=== PATIENT | male | born 1970 | race Hispanic/Latino ===

== ENCOUNTER 2019-07-06 15:08 | Emergency (ER) | payer SELFPAY ==
[~2019-07-06] VITALS: Ht 167.6 cm; Wt 96.6 kg
--- OUTSIDE RECORDS SUMMARY | ~2019-07-06 | XMS | Clinical Summary ---
Demographics + + + | Address | [address] | | | [place] [address] | + + + | Home Phone | | + + + | Preferred Language | Unknown | + + + | Marital Status | | + + + | Restorationism Affiliation | 1041 | + + + | Race | Unknown | + + + | Ethnic Group | Unknown | + + + Author + + + | Author | [facility] | | | and [place] | + + + | Organization | [facility] | | | and [place] | + + + | Address | Unknown | + + + | Phone | Unavailable | + + + Support + + + + + | Name | Relationship | Address | Phone | + + + + + | Leona Brothers | ECON | [address] | | | | | [place] | | | | | [address] | | + + + + + Care Team Providers + +------+ + | Care Senior Category Manager Name | Role | Phone | + +------+ + | Farhan Ferraro DO | PCP | | + +------+ + Allergies No Known Allergies Medications + + + +---------+------+------+-------+ | Medication | Sig | Dispensed | Refills | Star | End | Statu | | | | | | t | Date | s | | | | | | Date | | | + + + +---------+------+------+-------+ | cyclobenzaprine | | | 0 | 11/0 | | Activ | | (FLEXERIL) 10 mg | | | | 1/20 | | e | | tablet | | | | 18 | | | + + + +---------+------+------+-------+ | ibuprofen | | | 0 | 11/1 | | Activ | | (ADVIL,MOTRIN) 800 | | | | 1/20 | | e | | MG tablet | | | | 18 | | | + + + +---------+------+------+-------+ | ACETAMINOPHEN PO | Take by mouth. | | 0 | | | Activ | | | | | | | | e | + + + +---------+------+------+-------+ | metFORMIN | Take 1 tablet by | 180 | 0 | 08/1 | | Activ | | (GLUCOPHAGE) 500 mg | mouth 2 times daily. | tablet | | 8/20 | | e | | tablet | | | | 19 | | | + + + +---------+------+------+-------+ | glimepiride | TAKE 1 TABLET BY | | 5 | / | | Activ | | (AMARYL) 2 MG tablet | MOUTH TWICE DAILY | | | 2/20 | | e | | | | | | 19 | | | + + + +---------+------+------+-------+ | oseltamivir | Take 1 capsule by | 10 | 0 | 12/0 | 12/0 | Activ | | (TAMIFLU) 75 mg | mouth 2 times daily | capsule | | /20 | 9 | e | | capsuleIndications: | for 5 days. | | | 19 | 19 | | | Influenza | Indications: Flu | | | | | | + + + +---------+------+------+-------+ | | Take 5-10 mLs by | 120 mL | 0 | 12/0 | | Activ | | guaiFENesin-codeine | mouth every 4 hours | | | 4/20 | | e | | (ROBITUSSIN AC) | as needed for Cough. | | | 19 | | | | 100-10 mg/5 mL | | | | | | | | liquid | | | | | | | + + + +---------+------+------+-------+ Active Problems No known active problems Encounters +--------+---------+ + + + | Date | Type | Specialty | Care Team | Description | +--------+---------+ + + + | 07/03/ | Office | Immediate Care | Justin Baires, | Influenza B (Primary | | 2019 | Visit | | MD | Dx) | +--------+---------+ + + + from Last 3 Months Social History + +-------+ +--------+------+ | Tobacco Use | Types | Packs/Day | Years | Date | | | | | Used | | + +-------+ +--------+------+ | Never Smoker | | | | | + +-------+ +--------+------+ + +---+---+---+ | Smokeless Tobacco: | | | | | Never Used | | | | + +---+---+---+ + + +---------+ + | Alcohol Use | Drinks/Week | oz/Week | Comments | + + +---------+ + | Not Asked | 0 Standard drinks | 0.0 | | | | or equivalent | | | + + +---------+ + + + + | Sex Assigned at | Date Recorded | | | | + + + | Not on file | | + + + + + + + | Job Start Date | Occupation | Industry | + + + + | Not on file | Not on file | Not on file | + + + + + + + + | Travel History | Travel Start | Travel End | + + + + + + | No recent travel history available. | + + Last Filed Vital Signs + + + + + | Vital Sign | Reading | Time Taken | Comments | + + + + + | Blood Pressure | 149/76 | 07/03/2019 4:03 PM | | | | | PST | | + + + + + | Pulse | 102 | 07/03/2019 4:03 PM | | | | | PST | | + + + + + | Temperature | 37.2 C (98.9 F) | 07/03/2019 4:03 PM | | | | | PST | | + + + + + | Respiratory Rate | 18 | 07/03/2019 4:03 PM | | | | | PST | | + + + + + | Oxygen Saturation | 97% | 07/03/2019 4:03 PM | | | | | PST | | + + + + + | Inhaled Oxygen | - | - | | | Concentration | | | | + + + + + | Weight | 97.6 kg (215 lb 2.7 | 07/03/2019 4:03 PM | | | | oz) | PST | | + + + + + | Height | 167.6 cm (5' 6") | 07/03/2019 4:03 PM | | | | | PST | | + + + + + | Body Mass Index | 34.73 | 07/03/2019 4:03 PM | | | | | PST | | + + + + + Plan of Treatment + + + + + | Health Maintenance | Due Date | Last Done | Comments | + + + + + | Vaccine: | | | | | Dtap/Tdap/Td (1 - | 0 | | | | Tdap) | | | | + + + + + | Vaccine: Influenza | | | | | (#1) | 9 | | | + + + + + Procedures + +--------+ + + + | Procedure Name | Priori | Date/Time | Associated Diagnosis | Comments | | | ty | | | | + +--------+ + + + | INFLUENZA A AND B | STAT | 07/03/2019 | Influenza B | Results for this | | RNA, NAAT | | 4:10 PM | | procedure are in the | | | | PST | | results section. | + +--------+ + + + from Last 3 Months Results Influenza A and B RNA, NAAT (07/03/2019 4:10 PM PST) + + + + + + | Component | Value | Ref Range | Performed | Pathologist | | | | | At | Signature | + + + + + + | Influenza A | Test not performed | Negative, Test | [facility] | | | PCR | | not performed | [facility] | | | | | | [facility] | | + + + + + + | Influenza B | Positive (A) | Negative, Test | [facility] | | | PCR | | not performed | [facility] | [facility] | | | | | | [facility] | | + + + + + + + + | Specimen | + + | Tissue - Entire | | nasopharynx (body | | structure) | + + + + + + + | Performing | Address | City/State/Zipcode | Phone Number | | Organization | | | | + + + + + | [facility] | [address] | [place] | [phone] | | [facility] | | [address] | | | [facility] | | | | + + + + + from Last 3 Months Advance Directives + + + + + | Type | Date Recorded | Patient | Explanation | | | | Rn Clinical Trials | | + + + + + | Power of | | | | | Electrical Equipment Tester | | | | + + + + + | Advance | | | | | Directive | | | | + + + + +
--- OUTSIDE RECORDS SUMMARY | ~2019-07-06 | XMS | Encounter Summary ---
Demographics + + + | Address | [address] | | | [place] [address] | + + + | Home Phone | | + + + | Preferred Language | Unknown | + + + | Marital Status | | + + + | Scientologist Affiliation | 1041 | + + + | Race | Unknown | + + + | Ethnic Group | Unknown | + + + Author + + + | Author | [facility] | | | and [place] | + + + | Organization | [facility] | | | and [place] | + + + | Address | Unknown | + + + | Phone | Unavailable | + + + Support + + + + + | Name | Relationship | Address | Phone | + + + + + | Leona Brothers | ECON | [address] | | | | | [place] | | | | | [address] | | + + + + + Care Team Providers + +------+ + | Care Apparel Rental Clerk Name | Role | Phone | + +------+ + | Farhan Ferraro DO | PCP | | + +------+ + Reason for Referral Evaluate & Treat (Routine) + + + + + + + | Status | Reason | Specialty | Diagnoses / | Referred By | Referred To | | | | | Procedures | Contact | Contact | + + + + + + + | Authorized | Specialty | Diabetes | Diagnoses | Armas, | [facility] | | | Services | Educator / | | Simona Clarke, | Diabetes | | | Required | Diabetes | Uncontrolled | DO [address] | Education | | | | Services | type 2 | [facility] | [address] | | | | | diabetes | [place] | [place], | | | | | mellitus | [place], [place] | [place] | | | | | with | [address] | [address] | | | | | hyperglycemi | Phone: | Phone: | | | | | a ([facility]) | [phone] | [phone] | | | | | | Fax: | Fax: | | | | | | [phone] | [phone] | + + + + + + + Reason for Visit + + + | Reason | Comments | + + + | Blood Sugar Problem | RM 2 = Checked diabetes and has been from 243-390, feeling tired, | | | headache, | + + + Encounter Details +--------+---------+ + + + | Date | Type | Department | Care Team | Description | +--------+---------+ + + + | 03/17/ | Office | [facility] | Simona Armas | Uncontrolled type 2 | | 2019 | Visit | CARE [address] | DO [address] | diabetes mellitus | | | | [place] | [address] [place] | with hyperglycemia | | | | [address] | [place] [address] | ([facility]) (Primary Dx) | | | | [phone] | [phone] | | | | | | | | +--------+---------+ + + + Social History + +-------+ +--------+------+ | Tobacco [...] recent travel history available. | + + documented as of this encounter Last Filed Vital Signs + + + + + | Vital Sign | Reading | Time Taken | Comments | + + + + + | Blood Pressure | 120/80 | 03/17/2019 5:43 PM | | | | | PDT | | + + + + + | Pulse | 72 | 03/17/2019 5:43 PM | | | | | PDT | | + + + + + | Temperature | 36.7 C (98.1 F) | 03/17/2019 5:43 PM | | | | | PDT | | + + + + + | Respiratory Rate | 18 | 03/17/2019 5:43 PM | | | | | PDT | | + + + + + | Oxygen Saturation | 97% | 03/17/2019 5:43 PM | | | | | PDT | | + + + + + | Inhaled Oxygen | - | - | | | Concentration | | | | + + + + + | Weight | 94.3 kg (207 lb 14.3 | 03/17/2019 5:43 PM | | | | oz) | PDT | | + + + + + | Height | 167.6 cm (5' 6") | 03/17/2019 5:43 PM | | | | | PDT | | + + + + + | Body Mass Index | 33.55 | 03/17/2019 5:43 PM | | | | | PDT | | + + + + + documented in this encounter Progress Notes Warner Aranda CMA - 03/17/2019 5:15 PM PDTVerified name and date of of patient bef ore provider orders were carried out. Left AC X1, 23G, 1 lavender tube and 1 green tube. Patient tolerated well.Electronically si gned by Warner Aranda CMA at 03/17/2019 6:17 PM PDTPorter, Simona Clarke, - 03/17/2019 5: 15 PM PDT Patient ID: Guillermo Lewis is a 49 y.o. year old male Chief Complaint: Chief Complaint Patient presents with Blood Sugar Problem RM 2 = Checked diabetes and has been from 243-390, feeling tired, headache, Assessment and Plan: 1. Hyperglycemia Comprehensive Metabolic Panel Hemoglobin A1C Based on his blood sugar log that he has been doing on his 's home machine I am quite c ertain that he has undiagnosed type 2 diabetes. We will check an A1c and CMP today. Start metformin 500 mg twice daily and get established with a PCP. He will also start a daily asp irin. He is uninsured and is quite concerned about the cost of seeing a doctor, labs and me dications. is going to contact the hospital to see if there is any patient assistance available. Referral placed to simulation educator. Subjective: HPI Patient presents with to the urgent care today complaining of increased blood sugars a t home. He started feeling tired around March 10, 2019. is a diabetic and checked hi s sugar and it was over 300. She brings in a log of the sugar she has taken on him and they are running in the high 180s to low 200s. He has no prior history of diabetes diagnosis. He has no history of hypertension, coronary artery disease, cerebrovascular accident, or tob acco use. He has no other major medical problems. He takes no medications. Patient's medications, allergies, past medical, surgical, social and family histories were obtained and reviewed as appropriate. Review of Systems All other systems reviewed and are negative. Objective: Vitals: BP 120/80 | Pulse 72 | Temp 36.7 C (98.1 F) (Temporal) | Resp 18 | Ht 1.676 m (5' 6 ") | Wt 94.3 kg (207 lb 14.3 oz) | SpO2 97% | BMI 33.55 kg/m Physical Exam Constitutional: He is oriented to person, place, and time. He appears well-developed and we ll-nourished. No distress. HENT: Head: Normocephalic and atraumatic. Eyes: Pupils are equal, round, and reactive to light. Neurological: He is alert and oriented to person, place, and time. He has normal strength a nd normal reflexes. No sensory deficit. Skin: Skin is warm and dry. He is not diaphoretic. Psychiatric: He has a normal mood and affect. His speech is normal. Vitals reviewed. Electronically signed by: Simona Armas DO 03/17/2019 18:04 Note: Part of this report was transcribed using voice recognition software. Every effort wa s made to ensure accuracy. However, inadvertent computerized creel hand errors may be pre sent. Nestor Duque RN - 03/17/2019 5:15 PM PDTBlood sugar was 173 documented in this encounter Plan of Treatment + + +--------+ + + | Name | Type | Priori | Associated Diagnoses | Order Schedule | | | | ty | | | + + +--------+ + + | * [facility] | Outpatient | Routin | Uncontrolled type | Ordered: 03/17/2019 | | Education - AMB | Referral | e | 2 diabetes mellitus | | | Referral | | | with hyperglycemia | | | | | | (HCC) | | + + +--------+ + + documented as of this encounter Procedures + +--------+ + + + | Procedure Name | Priori | Date/Time | Associated Diagnosis | Comments | | | ty | | | | + +--------+ + + + | HEMOGLOBIN A1C | STAT | 03/17/2019 | Uncontrolled type | Results for this | | | | 6:06 PM | 2 diabetes mellitus | procedure are in the | | | | PDT | with hyperglycemia | results section. | | | | | (HCC) | | + +--------+ + + + | COMPREHENSIVE | STAT | 03/17/2019 | Uncontrolled type | Results for this | | METABOLIC PANEL | | 6:06 PM | 2 diabetes mellitus | procedure are in the | | | | PDT | with hyperglycemia | results section. | | | | | (HCC) | | + +--------+ + + + documented in this encounter Results Hemoglobin A1C (03/17/2019 6:06 PM PDT) + +---------+ + + + | Component | Value | Ref Range | Performed | Pathologist | | | | | At | Signature | + +---------+ + + + | Hemoglobin | 9.5 (H) | 4.3 - 6.0 % | [facility] | | | A1c | | | [facility] | | | | | | [facility] | | | | | | [facility] - | | | | | | LAB[facility]ATORY | | + +---------+ + + + | Estimated | 226 | mg/dL | [facility] | | | Average | | | [facility] | | | Glucose | | | MEDICAL | | | | | | CENTER - | | | | | | LABORATORY | | + +---------+ + + + + + | Specimen | + + | Blood | + + + + + + + | Performing | Address | City/State/Zipcode | Phone Number | | Organization | | | | + + + + + | [facility] | [address] | [place] | [phone] | | [facility] | | [address] | | | - LABORATORY | | | | + + + + + Comprehensive Metabolic Panel (03/17/2019 6:06 PM PDT) + + + + + + | Component | Value | Ref Range | Performed | Pathologist | | | | | At | Signature | + + + + + + | Na | 136 | 136 - 145 | [facility] | | | | | mmol/L | [facility] | | | | | [facility] | | | | | [facility] | | | | | | LAB[facility]ORY | | + + + + + + | K | 4.2 | 3.5 - 5.1 | [facility] | | | | | mmol/L | [facility] | | | | | | [facility] | | | | | | [facility] | | | | | | LAB[facility]ATORY | | + + + + + + | Cl | 102 | 98 - 107 mmol/L | [facility] | | | | | | [facility] | | | | | [facility] | | | | | [facility] | | | | | | LAB[facility] | | + + + + + + | CO2 | 30 | 21 - 32 mmol/L | [facility] | | | | | | [facility] | | [facility] | | [facility] | | | | | [facility] | | | | | | LAB[facility]ORY | | + + + + + + | Anion Gap | 4 | 2 - 16 mmol/L | [facility] | | | | | | [facility] | | | | | [facility] | | | | | [facility] | | | | | | LAB[facility]ORY | | + + + + + + | Glucose | 166 (H) | 74 - 106 mg/dL | [facility] | | | | | | [facility] | | | | | [facility] | | | | | [facility] | | | | | | LAB[facility]ATORY | | + + + + + + | BUN | 15 | 7 - 18 mg/dL | [facility] | | | | | | [facility] | | | [facility] | | | | | [facility] | | | | | | [facility] | | + + + + + + | Creatinine | 0.88 | 0.70 - 1.30 | [facility] | | | | | mg/dL | [facility] | | | | | | [facility] | | | | | | [facility] | | | | | | LABORATORY | | + + + + + + | eGFR if not | >60Comment: GLOMERULAR | >=60 | [facility] | | | | FILTRATION | mL/min/1.73m2 | [facility] | | | FAROESE | RATE,ESTIMATED | | MEDICAL | | | | mL/min/1.55c7Lcqj than | | PARK | | | | 60 Chronic kidney | | LABORATORY | | | | disease,if found over a | | | | | | 3-month period.Less than | | | | | | 15 Kidney failureFor | | | | | | | | | | | | Americans,multiply the | | | | | | calculated GFR by 1.21. | | | | | | | | | | + + + + + + | Calcium | 8.4 (L) | 8.5 - 10.1 | [facility] | | | | | mg/dL | [facility] | | | | | [facility] | | | | | | [facility] | | | | | | LAB[facility]ORY | | + + + + + + | Albumin | 3.6 | 3.4 - 5.0 g/dL | [facility] | | | | | | [facility] | | | | | [facility] | | | | | | [facility] | | | | | | [facility]ORY | | + + + + + + | Bilirubin | 0.4 | 0.2 - 1.0 mg/dL | [facility] | | | Total | | | [facility] | | | | | | [facility] | | | | | | [facility] | | | | | | LAB[facility]ATORY | | + + + + + + | Total | 6.9 | 6.4 - 8.2 g/dL | [facility] | | | Protein | | | [facility] | | | | | | [facility] | | | | | | [facility] | | | | | | LAB[facility]ATORY | | + + + + + + | AST | 32 | 15 - 37 U/L | [facility] | | | | | | [facility] | | | [facility] | [facility] | | | | | | [facility] | | | | | | LAB[facility]ATORY | | + + + + + + | ALT | 67 (H) | 16 - 63 U/L | [facility] | | | | | | [facility] | | | | | [facility] | | | | | | [facility] | | | | | | LAB[facility]ATORY | | + + + + + + | Alkaline | 90 | 46 - 116 U/L | [facility] | | | Phosphatase | | | [facility] | | | | | [facility] | | | | | | [facility] | | | | | | LAB[facility]ATORY | | + + + + + + | Globulin | 3.3 | 2.1 - 3.8 g/dL | [facility] | | | | | | [facility] | | | | | [facility] | | | | | | [facility] | | | | | | LAB[facility]ORY | | + + + + + + | Albumin/Nathalie | 1.1 | 0.8 - 2.0 | [facility] | | | bulin Ratio | | | [facility] | | | | | [facility] | | | | | | [facility] | | | | | | LAB[facility]ORY | | + + + + + + | BUN/Creatin | 17.0 | | [facility] | | | ine Ratio | | | [facility] | | | | | | [facility] | | | | | | [facility] | | | | | | LAB[facility]ORY | | + + + + + + + + | Specimen | + + | Blood | + + + + + + + | Performing | Address | City/State/Zipcode | Phone Number | | Organization | | | | + + + + + | [facility] | [address] | [place] | [phone] | | [facility] | | [address] | | | [facility] | | | | + + + + + documented in this encounter Visit Diagnoses + + | Diagnosis | + + | Uncontrolled type 2 diabetes mellitus with hyperglycemia (HCC) - Primary | + + documented in this encounter
--- OUTSIDE RECORDS SUMMARY | ~2019-07-06 | XMS | Encounter Summary ---
Demographics + + + | Address | [address] | | | [place] [address] | + + + | Home Phone | | + + + | Preferred Language | Unknown | + + + | Marital Status | | + + + | Quaker Affiliation | 1041 | + + + | Race | Unknown | + + + | Ethnic Group | Unknown | + + + Author + + + | Author | [facility] | | | and [place] | + + + | Organization | [facility] | | | and [place] | + + + | Address | Unknown | + + + | Phone | Unavailable | + + + Support + + + + + | Name | Relationship | Address | Phone | + + + + + | Leona Brothers | ECON | [address] | | | | | [place], [place] | | | | | [address] | | + + + + + Care Team Providers + +------+ + | Care Forklift Mechanic Name | Role | Phone | + +------+ + | Farhan Ferraro PCP | | + +------+ + Encounter Details +--------+ + + + + | Date | Type | Department | Care Team | Description | +--------+ + + + + | 06/16/ | Imaging | [facility] [place] [facility] | [place] | | | 2018 | Exam | [facility] [address] | [address] [place] | [place] | | | | | [place] [id number] | [address] | | | | | [phone] | | | +--------+ + + + + Social History + +-------+ [...] + + documented as of this encounter Plan of Treatment Not on filedocumented as of this encounter Procedures + +--------+ + + + | Procedure Name | Priori | Date/Time | Associated Diagnosis | Comments | | | ty | | | | + +--------+ + + + | XR CHEST PA AND | STAT | 06/16/2018 | Persistent cough | Results for this | | LATERAL | | 2:57 PM | for 3 weeks or | procedure are in the | | | | PST | longer | results section. | + +--------+ + + + documented in this encounter Results XR Chest PA and Lateral (06/16/2018 2:57 PM PST) + + | Specimen | + + | | + + + + + | Narrative | Performed At | + + + | CLINICAL INFORMATION: 1 month of productive cough. COMPARISON: | [facility] | | None available. FINDINGS: Frontal and lateral views of the | | | chest. Lungs: No focal airspace disease, pleural effusion, or | | | pneumothorax. Heart/mediastinum: Cardiac silhouette is of normal | | | size. Central pulmonary vasculature has a normal appearance. | | | Bones: No acute osseous abnormality appreciated. IMPRESSION - No | | | acute disease. Dictated and Signed by: Corby Cox MD | | | Electronically signed: 06/16/2018 6:14 PM | | + + + + + | Procedure Note | + + | Cheng, Rad Results In - 06/16/2018 6:17 PM PST CLINICAL INFORMATION: 1 month of | | productive cough.COMPARISON: None available.FINDINGS: Frontal and lateral views of the | | chest. Lungs: No focal airspace disease, pleural effusion, or pneumothorax. | | Heart/mediastinum: Cardiac silhouette is of normal size. Central pulmonaryvasculature | | has a normal appearance.Bones: No acute osseous abnormality appreciated.IMPRESSION - No | | acute disease.Dictated and Signed by: Corby Cox MD Electronically signed: | | 06/16/2018 6:14 PM | |Lungs: No focal airspace disease, pleural effusion, or pneumothorax. | | | |Heart/mediastinum: Cardiac silhouette is of normal size. Central pulmonary | |vasculature has a normal appearance. | | | |Bones: No acute osseous abnormality appreciated. | | | |IMPRESSION - No acute disease. | | | |Dictated and Signed by: Corby Cox MD | | Electronically signed: 06/16/2018 6:14 PM | + + + +---------+ + + | Performing | Address | City/State/Zipcode | Phone Number | | Organization | | | | + +---------+ + + | [facility] | | | | + +---------+ + + documented in this encounter Visit Diagnoses Not on filedocumented in this encounter"
--- OUTSIDE RECORDS SUMMARY | ~2019-07-06 | XMS | Encounter Summary ---
Demographics + + + | Address | [address] | | | [place] [address] | + + + | Home Phone | | + + + | Preferred Language | Unknown | + + + | Marital Status | | + + + | Evangelical Affiliation | 1041 | + + + | Race | Unknown | + + + | Ethnic Group | Unknown | + + + Author + + + | Author | [facility] | | | and [place] | + + + | Organization | [facility] | | | and [place] | + + + | Address | Unknown | + + + | Phone | Unavailable | + + + Support + + + + + | Name | Relationship | Address | Phone | + + + + + | Leona Brothers | ECON | [address] | | | | | [address], [place] | | | | | [address] | | + + + + + Care Team Providers + +------+ + | Care Practice Physician Name | Role | Phone | + +------+ + PCP | Unavailable | + +------+ + Encounter Details +--------+ + + + + | Date | Type | Department | Care Team | Description | +--------+ + + + + | 11/06/ | Hospital | [facility] | | | | 1995 | Encounter | [facility] | | | | | CENTER [address] | | | | | | [place] | | | | | | [address] | | | | | | [phone] | | | +--------+ + + + + Social History + +-------+ +--------+------+ | Tobacco Use | Types | Packs/Day | Years | Date | | | | | Used | | + +-------+ +--------+------+ | Never Assessed | | | | | + +-------+ +--------+------+ + + + | Sex Assigned at [...] Not on filedocumented as of this encounter Visit Diagnoses Not on filedocumented in this encounter"
--- OUTSIDE RECORDS SUMMARY | ~2019-07-06 | XMS | Encounter Summary ---
Demographics + + + | Address | [address] | | | [place] [address] | + + + | Home Phone | | + + + | Preferred Language | Unknown | + + + | Marital Status | | + + + | Quaker Affiliation | 1041 | + + + | Race | Unknown | + + + | Ethnic Group | Unknown | + + + Author + + + | Author | [facility] | | | and [place] | + + + | Organization | [facility] | | | and [place] | + + + | Address | Unknown | + + + | Phone | Unavailable | + + + Support + + + + + | Name | Relationship | Address | Phone | + + + + + | Leona Brothers | ECON | [address] | | | | | [address], [place] | | | | | [address] | | + + + + + Care Team Providers + +------+ + | Care Jumbo Operator Name | Role | Phone | + +------+ + PCP | Unavailable | + +------+ + Encounter Details +--------+ + + + + | Date | Type | Department | Care Team | Description | +--------+ + + + + | 10/05/ | Hospital | [facility] | | | | 2002 | Encounter | [facility] | | | | | | CENTER [address] | | | | | | [place] | | | | | | [address] | | | | | | [phone] | | | +--------+ + + + [...]
--- OUTSIDE RECORDS SUMMARY | ~2019-07-06 | XMS | Encounter Summary ---
Demographics + + + | Address | [address] | | | [place] [address] | + + + | Home Phone | | + + + | Preferred Language | Unknown | + + + | Marital Status | | + + + | Amish Affiliation | 1041 | + + + | Race | Unknown | + + + | Ethnic Group | Unknown | + + + Author + + + | Author | [facility] | | | and [place] | + + + | Organization | [facility] | | | and [place] | + + + | Address | Unknown | + + + | Phone | Unavailable | + + + Support + + + + + | Name | Relationship | Address | Phone | + + + + + | Leona Brothers | ECON | [address] | | | | | [place] | | | | | [address] | | + + + + + Care Team Providers + +------+ + | Care Cable Repairer Name | Role | Phone | + +------+ + | Farhan Ferraro DO | PCP | | + +------+ + Reason for Visit +---------+ + | Reason | Comments | +---------+ + | Results | | +---------+ + Encounter Details +--------+ + + + + | Date | Type | Department | Care Team | Description | +--------+ + + + + | 06/18/ | Telephone | [facility] | BertrandmaganMaicol chapman | Results | | 2017 | | CARE [address] | [address] | | | | | [place] | [place] [place] | | | | | [address] | [address] | | | | | [phone] | | | +--------+ + + + [...]
--- OUTSIDE RECORDS SUMMARY | ~2019-07-06 | XMS | Encounter Summary ---
Demographics + + + | Address | [address] | | | [place] [address] | + + + | Home Phone | | + + + | Preferred Language | Unknown | + + + | Marital Status | | + + + | Anabaptist Affiliation | 1041 | + + + | Race | Unknown | + + + | Ethnic Group | Unknown | + + + Author + + + | Author | [facility] | | | and [place] | + + + | Organization | [facility] | | | and [place] [...] [place] | | | | | [address] | | + + + + + Care Team Providers + +------+ + | Care Wire Twister Name | Role | Phone | + +------+ + | Farhan Ferraro DO | PCP | | + +------+ + Reason for Visit +---------+ + | Reason | Comments | +---------+ + | Results | | +---------+ + Encounter Details +--------+ + + + + | Date | Type | Department | Care Team | Description | +--------+ + + + + | 06/30/ | Telephone | [facility] | BertrandmaganMaicol chapman | Results | | 2017 | | CARE [address] | [address] | | | | | [place] | [place] [place] | | | | | [address] | [address] | | | | | [phone] | | | +--------+ + + + [...]
--- OUTSIDE RECORDS SUMMARY | ~2019-07-06 | XMS | Encounter Summary ---
Demographics + + + | Address | [address] | | | [place] [address] | + + + | Home Phone | | + + + | Preferred Language | Unknown | + + + | Marital Status | | + + + | Synagogue Affiliation | 1041 | + + + | Race | Unknown | + + + | Ethnic Group | Unknown | + + + Author + + + | Author | [facility] | | | and [place] | + + + | Organization | [facility] | | | and [place] | + + + | Address | Unknown | + + + | Phone | Unavailable | + + + Support + + + + + | Name | Relationship | Address | Phone | + + + + + | Leona Brothers | ECON | [address] | | | | | [place], [place] | | | | | [address] | | + + + + + Care Team Providers + +------+ + | Care Tare Weigher Name | Role | Phone | + +------+ + PCP | Unavailable | + +------+ + Encounter Details +--------+ + + + + | Date | Type | Department | Care Team | Description | +--------+ + + + + | 02/05/ | Hospital | [facility] | | | | 1992 | Encounter | [facility] | | | | | | CENTER [address] | | | | | | [place] | | | | | | [address] | | | | | | [phone] | | | +--------+ + + + [...]
--- OUTSIDE RECORDS SUMMARY | ~2019-07-06 | XMS | Encounter Summary ---
Demographics + + + | Address | [address] | | | [place] [address] | + + + | Home Phone | | + + + | Preferred Language | Unknown | + + + | Marital Status | | + + + | Restorationism Affiliation | 1041 | + + + | Race | Unknown | + + + | Ethnic Group | Unknown | + + + Author + + + | Author | [facility] | | | and [place] | + + + | Organization | [facility] | | | and [place] | + + + | Address | Unknown | + + + | Phone | Unavailable | + + + Support + + + + + | Name | Relationship | Address | Phone | + + + + + | Leona Brothers | ECON | [address] | | | | | [facility] [place] | | | | | [address] | | + + + + + Care Team Providers + +------+ + | Care Motor Equipment Commanding Officer Name | Role | Phone | + +------+ + | No, Physician | PCP | Unavailable | + +------+ + Reason for Visit + + + | Reason | Comments | + + + | Flu Like Symptoms | Room 1: cough, fever and chills x5 days, headache | + + + Encounter Details +--------+---------+ + + + | Date | Type | Department | Care Team | Description | +--------+---------+ + + + | 08/12/ | Office | [facility] | Maicol Aparicio | Viral URI with cough | | 2018 | Visit | CARE [address] | MD Carissa [address] | (Primary Dx) | | | | [place] | [place] | | | | | [address] | [address] | | | | | [phone] | | | +--------+---------+ + + + [...] + + + | Blood Pressure | 134/84 | 08/12/2017 3:18 PM | | | | | PST | | + + + + + | Pulse | 76 | 08/12/2017 3:18 PM | | | | | PST | | + + + + + | Temperature | 37.4 C (99.4 F) | 08/12/2017 3:18 PM | | | | | PST | | + + + + + | Respiratory Rate | 18 | 08/12/2017 3:18 PM | | | | | PST | | + + + + + | Oxygen Saturation | 97% | 08/12/2017 3:18 PM | | | | | PST | | + + + + + | Inhaled Oxygen | - | - | | | Concentration | | | | + + + + + | Weight | 99.7 kg (219 lb 12.8 | 08/12/2017 3:18 PM | | | | oz) | PST | | + + + + + | Height | 165.1 cm (5' 5") | 08/12/2017 3:18 PM | | | | | PST | | + + + + + | Body Mass Index | 36.58 | 08/12/2017 3:18 PM | | | | | PST | | + + + + + documented in this encounter Patient Instructions Patient Instructions Maicol Aparicio MD - 08/12/2017 3:00 PM PSTDrink plenty of flui ds and get plenty of rest. Use [id number]-amc-lwdvfut Tylenol, Aleve or Advil as needed for fever, aches and pains. Lavage nose with saline solution 3-4 times a day to improve nasal congestion. Mix 1 level t easpoon of table salt with 2 cups of lukewarm water for nasal irrigation. Use cool mist vaporizer in bedroom and living space to reduce cough and airway irritation. Gargle and spit out warm salt water to soothe sore throat. Use throat lozenges of choice an d/or Cepastat throat spray as needed. Take pkbh-lkw-jdugqso Mucinex or equivalent product as needed for thick mucous. Use Hycodan cough syrup as needed for cough. Return or follow-up with your primary doctor if not better in 1 week, sooner if experiencin g difficulty swallowing liquids, progressive productive cough, associated chest pain, shortn ess of breath, fever or progessive sinus pressure/headache. These are signs that you may n eed an antibiotic for bacterial infection. Enfermedad Respiratoria Viral [Uri, Viral Respiratory Illness, Adult, No Abx] Usted tiene agusto enfermedad respiratoria de las vas superiores provocada por un virus. Est a enfermedad es contagiosa kay los primeros thomas. Se transmite por el aire, por la tos o el estornudo de la persona afectada, o por contacto directo con may persona (si zakiya toca a la persona enferma y despus se toca los ojos, la nariz o la boca). La mayora de las enf ermedades virales mejoran en 7-10 thomas con reposo y simples rosa caseros; aunque, en oc asiones, la enfermedad puede durar varias semanas. Los antibiticos son ineficaces contra l os virus, por lo que generalmente no se recetan para esta enfermedad. Cuidados En [place]: 1) Si los sntomas son severos, descanse en aranda casa kay los primeros 2 3 thomas. Isaura ndo reanude carmen actividades, evite cansarse demasiado. 2) Evite exponerse al humo de cigarrillo (suyo o de otras personas). 3) Puede usar Tylenol (acetaminofn) o ibuprofeno (Motrin o Advil) para controlar la fiebr e o el dolor muscular y el dolor de giovanni. (La aspirina no debe usarse nunca en personas me nores de 18 aos enfermas con fiebre, ya que puede causar daos graves al hgado.) 4) Es posible que tenga poco apetito, por lo que agusto dieta ligera es adecuada. Para evitar la deshidratacin, celine entre 6 y 8 vasos de lquido cada da (agua, refrescos, jugos de fruta, t, sopa etc.). La abundancia de lquido ayuda a desprender las secreciones de la n ariz y los pulmones. 5) Los medicamentos sin receta para el resfriado no acortarn la duracin de la enfermeda d, edi pueden ser tiles para aliviar los siguientes sntomas: tos (Robitussin MD); dolor de garganta (Chloraseptic en comprimidos o spray); congestin nasal y de los senos paranas ales (Actifed, Sudafed o Chlortrimeton). Zuri agusto VISITA DE CONTROL a aranda mdico, o segn le indiquen, si no se siente mejor corbin e la semana prxima. Busque Prontamente Atencin Mdica si algo de lo siguiente ocurre: -- Tos con esputo de color (mucosidad) o con reinaldo. -- Dolor en el pecho, falta de aire, silbidos o dificultad para respirar. -- Dolor de giovanni uri, dolor en la kehinde, el marilu o los odos. -- Fiebre superior a los 100.4 F (38.0 C) kay ms de jac thomas. -- Incapacidad de tragar a causa del dolor de garganta. Date Last Reviewed: 04/12/[id number] [employer]. [address] [place] [address], [place] [address]. Todos lo s derechos reservados. Esta informacin no pretende sustituir la atencin mdica profesio nal. Slo aranda mdico puede diagnosticar y tratar un problema de mali. documented in this encounter Progress Notes Maicol Aparicio MD - 08/12/2017 3:00 PM PSTFormatting of this note might be differen t from the original. Chief Complaint: Flu Like Symptoms (Room 1: cough, fever and chills x5 days, headache) Guillermo is a 47 y.o. male who comes in complaining of congestion and cough starting 4 days ago. Describes clear nasal congestion, mild post-nasal drainage, mild sinus pain/pressure, frontal headache, bilateral; ear ache, eye irritation, sore throat and dry cough. Had measur ed fever, no sweats but chills. Has body aches. No nausea or vomiting. No diarrhea. No short ness of breath or wheezing but has anterior pleuritic chest burning/pain. Non smoker and no hx of asthma or COPD. Was hospitalized for pneumonia 14 years ago. Has been taking ibuprofen with improvement in symptoms. Had exposure to family with same. Patient's medications, allergies, past medical, surgical, social and family histories were reviewed and updated as appropriate. Objective: BP 134/84 | Pulse 76 | Temp 37.4 C (99.4 F) (Temporal) | Resp 18 | Ht 1.651 m (5' 5 ") | Wt 99.7 kg (219 lb 12.8 oz) | SpO2 97% | BMI 36.58 kg/m General Appearance: Alert, cooperative, obese, middle-aged male in no distress, appears st ated age. Non toxic appearance. Breathing comfortably and speaking in full sentences. Head: Normocephalic, no facial sinus tenderness. No mastoid tenderness. Eyes: PERRL, conjunctiva clear without exudates. Ears: Unremarkable TM's with clear external ear canals and gross normal hearing. Nose: Mildly congested with clear exudates. Throat: Erythematous, mildly edematous tonsils without exudates. Moist MM. Neck: Supple, symmetrical, no anterior cervical adenopathy. Lungs: Clear to auscultation bilaterally without rales or wheezes, respirations unlabored. Cardiac: Regular rhythm, no murmur or vel. No ankle edema. Abdomen: Mildly protuberant with normally active bowel sounds, soft, non tender. No organom egaly. Skin: Skin color, texture, turgor normal, no rash. Assessment and Plans: 1. Viral URI with cough HYDROcodone-homatropine (HYCODAN) 5-1.5 MG/5ML syrup 4 day history of viral URI with cough without complication or bronchospasm. He was given t he following instructions and prescription. Plan: Drink plenty of fluids and get plenty of rest. Use gcam-xrr-kymjuin Tylenol, Aleve or Advil as needed for fever, aches and pains. Lavage nose with saline solution 3-4 times a day to improve nasal congestion. Mix 1 level t easpoon of table salt with 2 cups of lukewarm water for nasal irrigation. Use cool mist vaporizer in bedroom and living space to reduce cough and airway irritation. Gargle and spit out warm salt water to soothe sore throat. Use throat lozenges of choice an d/or Cepastat throat spray as needed. Take iaxr-csj-xpsdhjj Mucinex or equivalent product as needed for thick mucous. Use Hycodan cough syrup as needed for cough. Return or follow-up with your primary doctor if not better in 1 week, sooner if experiencin g difficulty swallowing liquids, progressive productive cough, associated chest pain, shortn ess of breath, fever or progessive sinus pressure/headache. These are signs that you may n eed an antibiotic for bacterial infection. Maicol Dugan documented in th is encounter Plan of Treatment Not on filedocumented as of this encounter Visit Diagnoses + + | Diagnosis | + + | Viral URI with cough - Primary Acute upper respiratory infections of unspecified site | + + documented in this encounter
--- OUTSIDE RECORDS SUMMARY | ~2019-07-06 | XMS | Encounter Summary ---
Demographics + + + | Address | [address] | | | [place] [address] | + + + | Home Phone | | + + + | Preferred Language | Unknown | + + + | Marital Status | | + + + | Jainism Affiliation | 1041 | + + + | Race | Unknown | + + + | Ethnic Group | Unknown | + + + Author + + + | Author | [facility] | | | and [place] | + + + | Organization | [facility] | | | and [place] | + + + | Address | Unknown | + + + | Phone | Unavailable | + + + Support + + + + + | Name | Relationship | Address | Phone | + + + + + | Leona Brothers | ECON | [address] | | | | | [place] | | | | | [address] | | + + + + + Care Team Providers + +------+ + | Care Measurement Coordinator Name | Role | Phone | + +------+ + | Farhan Ferraro PCP | | + +------+ + Reason for Visit + + + | Reason | Comments | + + + | Cough | for the last 4 weeks, has been seen in the ER and his PCP, | | | nothing is working, still sick, RM 4 | + + + | Nasal Congestion | | + + + | Fever | | + + + Encounter Details +--------+---------+ + + + | Date | Type | Department | Care Team | Description | +--------+---------+ + + + | 06/16/ | Office | [facility] | Maicol Aparicio | Persistent cough for | | 2018 | Visit | CARE [address] | [address] | 3 weeks or longer | | | | [place] | [place] | (Primary Dx); Acute | | | | [id number] | [id number] | non-recurrent | | | | [phone] | | maxillary sinusitis | +--------+---------+ + + + Social History [...] + + + | Blood Pressure | 140/80 | 06/16/2018 2:14 PM | | | | | PST | | + + + + + | Pulse | 75 | 06/16/2018 2:14 PM | | | | | PST | | + + + + + | Temperature | 36.8 C (98.2 F) | 06/16/2018 2:14 PM | | | | | PST | | + + + + + | Respiratory Rate | 14 | 06/16/2018 2:14 PM | | | | | PST | | + + + + + | Oxygen Saturation | 98% | 06/16/2018 2:14 PM | | | | | PST | | + + + + + | Inhaled Oxygen | - | - | | | Concentration | | | | + + + + + | Weight | 99 kg (218 lb 4.1 | 06/16/2018 2:14 PM | | | | oz) | PST | | + + + + + | Height | 165.1 cm (5' 5") | 06/16/2018 2:14 PM | | | | | PST | | + + + + + | Body Mass Index | 36.32 | 06/16/2018 2:14 PM | | | | | PST | | + + + + + documented in this encounter Patient Instructions Patient Instructions Maicol Aparicio MD - 06/16/2018 2:00 PM PSTTake Augmentin and p rednisone as directed until gone. Finish the course of doxycycline already prescribed. Drink plenty of fluids and get plenty of rest. Use euib-mtx-nidkmhb Tylenol, Aleve or Advil as needed for fever, aches and pains. Lavage nose with saline solution 3-4 times a day to improve nasal congestion. Mix 1 level t easpoon of table salt with 2 cups of lukewarm water for nasal irrigation. If nose is occluded at night, use oxymetazoline nasal spray (Afrin or Dristan Long Acting), 1 spray in each nostril at bedtime only for no more than 5 days. Apply spray after using s michelle lavage and blowing nose clear. Use cool mist vaporizer in bedroom and living space to reduce cough and airway irritation. Gargle and spit out warm salt water to soothe sore throat. Use throat lozenges of choice an d/or Cepastat throat spray as needed. Take vbuy-lsj-lgovihn Mucinex or equivalent product as needed for thick mucous. Use Tessalon Perles as needed for cough. Return or follow-up with your primary doctor if not better in 1 week, sooner if experiencin g difficulty swallowing liquids, progressive productive cough, associated chest pain, shortn ess of breath, fever or progessive sinus pressure/headache. Follow-up with Dr. Ferraro in t he next few weeks. Sinusitis [Sinusitis, Abx Tx] Los senos paranasales son cavidades llenas de aire dentro de los huesos de la kehinde. Se cone ctan con la parte interna de la nariz. La sinusitis es agusto inflamacin del tejido que recub re la cavidad del seno paranasal. Mike inflamacin puede presentarse francisco un resfriado o la fiebre del heno (alergia al polen y a otras partculas que haya en el aire) y puede prov ocar congestin de los senos paranasales y sensacin de tener la giovanni pesada . Agusto infeccin de los senos paranasales causa fiebre, dolor de giovanni y dolor en la kehinde. Suele berry secreciones verdosas o amarillentas de la nariz o por la parte posterior de la gargant a (goteo post-nasal). Se recetan antibiticos para tratar esta enfermedad. Cuidados En [place]: 1. Dina nik agua, t caliente y otros lquidos para mantenerse clay hidratado. Eso dilu ye la mucosidad y facilita el drenaje de los senos paranasales. 2. Aplique calor sobre las reas de la kehinde que le duelen. Use agusto toalla empapada en [place]. Tambin puede pararse en la ducha y dejar que le caiga el [place] sobre la kehinde. sta es agusto buena manera de inhalar el vapor tibio del agua al tiempo que aplica sandy or sobre la kehinde. (Cbrase la boca y la nariz con las david para poder respirar mientras le el agua sobre la kehinde.) 3. Emplee un vaporizador con productos erika Seymour s VapoRub (que contiene mentol) por la n oche. Francisco el da, chupe caramelos duros de menta, mentol o eucalipto. 4. Un expectorante que contenga guaifenesina (erika Robitussin) ayuda a diluir la mucosidad y a facilitar el drenaje de los senos paranasales. 5. Puede arnaldo algn descongestionante sin receta a menos que le hayan recetado algn med icamento similar. Los sprays nasales son los que tienen efecto ms rpido. Use alguno que contenga fenilefrina (Davidson-Synephrine, Sinex, entre otros) o oximetazolina (Afrin). Campbell, sunese la nariz suavemente para eliminar la mucosidad y luego coloque las gotas. No use es os medicamentos con mayor frecuencia que la indicada en la etiqueta o francisco ms de jac d as, dado que los sntomas pueden empeorar. Tambin puede usar tabletas que contengan pse udoefedrina (Sudafed). Muchos medicamentos para la sinusitis combinan componentes, lo que po tima aumentar los efectos secundarios. Kari las etiquetas o pida ayuda al farmacutico. NOT A: Las personas con presin arterial jayleen no deberan arnaldo descongestionantes, porque s tos pueden subir la presin. 6. Los antihistamnicos son tiles si la sinusitis se debe a agusto alergia. El ms suave e s la clorfeniramina (de venta sin receta). La dosis para los adultos es de 8-12 mg jac vece s por da. [NOTA: No tome clorfeniramina si tiene glaucoma o si tiene problemas al orinar d ebido a agusto prstata agrandada.] Claritin (loratadina) es un antihistamnico que provoca m scott somnolencia y resulta agusto buena alternativa para arnaldo francisco el da. 7. No use productos de irrigacin y enjuagues nasales francisco agusto infeccin aguda de los senos paranasales, a menos que se lo haya indicado aranda mdico. El enjuague puede diseminar l a infeccin a otras cavidades de los senos paranasales. 8. Puede usar acetaminofn (Tylenol) o ibuprofeno (Motrin o Advil) para controlar el dolor , a menos que le hayan recetado otro medicamento. [ NOTA: Si tiene agusto enfermedad heptica o renal crnica, o potter tenido alguna vez agusto lcera estomacal, consulte con aranda mdico ante s de arnaldo estos medicamentos.] (La aspirina no debe usarse nunca en personas menores de 18 aos enfermas con fiebre, ya que puede causar daos graves al hgado.) 9. Termine de arnaldo todos los medicamentos que le hayan recetado aunque ya se sienta mejor a los pocos thomas. Programe agusto VISITA DE CONTROL con aranda mdico o a lelia centro, o segn le indique nuestro personal mdico, si no se siente mejor. Busque Prontamente Atencin Mdica si algo de lo siguiente ocurre: Dolor en la kehinde o dolor de giovanni que se hace ms uri. Rigidez en el marilu. Inusual mareo o confusin; se siente "raro" o diferente de lo habitual. Hinchazn de la frente o los prpados. Problemas de visin; por ejemplo, visin borrosa o doble. Fiebre de 100.4F (38C) o ms jayleen, o erika le haya indicado aranda proveedor de atenci n mdica Convulsiones. Date Last Reviewed: 11/10/201419997924-6059 [employer]. [address] [place] [address], [place] [address]. Todos lo s derechos reservados. Esta informacin no pretende sustituir la atencin mdica profesio nal. Slo aranda mdico puede diagnosticar y tratar un problema de mali. documented in this encounter Progress Notes Maicol Aparicio MD - 06/16/2018 2:00 PM PSTFormatting of this note might be differen t from the original. Chief Complaint: Cough (for the last 4 weeks, has been seen in the ER and his PCP, nothing is working, still sick, RM 4); Nasal Congestion; and Fever Guillermo is a 48 y.o. male who comes in with his Moroccan-speaking , complaining of coug h for 1 month. He was initially seen at the [facility] emergency room one month ago, had a c hest x-ray which is reported to be clear and was treated with a Z-Lupillo. He was seen one week ago by Dr. Ferraro, his PCP, who provided him with a 10 day course of doxycycline. He has y et to improve with 3 days left. Describes mild nasal congestion, nighttime post-nasal drain age, mild sinus pain/pressure, bilateral ear ache, no eye irritation, dry sore throat and pr oductive cough with brown sputum for 1 week. Had measured fever of 101F last 3 days ago, has sweats and chills. Has body aches. No nausea but vomiting on occasion with cough. No diarrh ea. Has shortness of breath, no wheezing and has anterior pleuritic chest burning/pain. Non smoker and no hx of asthma. Has used inhaler for bronchitis last year. Remotely hospitalized for the same. Has been taking doxycycline and cold remidies without improvement in symptoms . No exposure to others with same. Patient's medications, allergies, past medical, surgical, social and family histories were reviewed and updated as appropriate. Objective: BP 140/80 | Pulse 75 | Temp 36.8 C (98.2 F) (Temporal) | Resp 14 | Ht 1.651 m (5' 5 ") | Wt 99 kg (218 lb 4.1 oz) | SpO2 98% | BMI 36.32 kg/m General Appearance: Alert, cooperative, obese, middle-aged male in no distress, appears st ated age. Non toxic appearance. Breathing comfortably and speaking in full sentences. Head: Normocephalic, mild maxillary sinus tenderness. No mastoid tenderness. Eyes: PERRL, conjunctiva clear without exudates. Ears: Unremarkable TM's with clear external ear canals and gross normal hearing. Nose: Mildly congested with clear exudates. Throat: Erythematous, moderately edematous with a few exudates. Moist MM. Neck: Supple, symmetrical, no anterior cervical adenopathy. Lungs: Slightly delayed expiratory phase a ventilation to auscultation bilaterally without overt wheezes, rhonchi, rales or rubs, respirations unlabored with good air movement. Cardiac: Quiet precordium, Regular rhythm, no murmur or vel. No ankle edema. Abdomen: Mildly protuberant, normally active bowel sounds, Soft, non tender. No organomegal y. Skin: Skin color, texture, turgor normal, no rash. Two-view chest x-ray, today: My independent review of the two-view chest x-ray failed to reveal acute cardiopulmonary fi ndings. Radiologist interpretation is pending. Assessment and Plans: 1. Persistent cough for 3 weeks or longer XR Chest PA and Lateral Bordetella pertussis DNA, NAAT predniSONE (DELTASONE) 10 mg tablet benzonatate (TESSALON PERLES) 100 mg capsule 2. Acute non-recurrent maxillary sinusitis amoxicillin-clavulanate (AUGMENTIN) 875-125 mg per tablet 1 month history of persistent cough with intermittent brown sputum production despite compl eting a Z-Lupillo followed by 7 days of doxycycline. Findings suspicious for secondary maxillar y sinusitis as a cause of his persistent cough with or without possible postviral cough synd yanick. No infiltrate on chest x-ray. He and his were given the following instructions, prescriptions and a note for work. Plan: Take Augmentin and prednisone as directed until gone. Finish the course of doxycycline already prescribed. Drink plenty of fluids and get plenty of rest. Use eafi-oii-znbnxio Tylenol, Aleve or Advil as needed for fever, aches and pains. Lavage nose with saline solution 3-4 times a day to improve nasal congestion. Mix 1 level t easpoon of table salt with 2 cups of lukewarm water for nasal irrigation. If nose is occluded at night, use oxymetazoline nasal spray (Afrin or Dristan Long Acting), 1 spray in each nostril at bedtime only for no more than 5 days. Apply spray after using s michelle lavage and blowing nose clear. Use cool mist vaporizer in bedroom and living space to reduce cough and airway irritation. Gargle and spit out warm salt water to soothe sore throat. Use throat lozenges of choice an d/or Cepastat throat spray as needed. Take cffa-ldp-xcekktq Mucinex or equivalent product as needed for thick mucous. Use Tessalon Perles as needed for cough. Return or follow-up with your primary doctor if not better in 1 week, sooner if experiencin g difficulty swallowing liquids, progressive productive cough, associated chest pain, shortn ess of breath, fever or progessive sinus pressure/headache. Follow-up with Dr. Ferraro in t he next few weeks. Maicol Lopezectronically signed by Maicol Aparicio MD at 06/16/2018 4:54 PM PSTdocumented in this encounter Plan of Treatment Not on [...] section. | + +--------+ + + + | BORDETELLA PERTUSSIS | STAT | 06/16/2018 | Persistent cough | Results for this | | DNA, NAAT | | 2:57 PM | for 3 [...] | | | + +---------+ + + Bordetella pertussis DNA, NAAT (06/16/2018 2:57 PM PST) + + + + + + | Component | Value | Ref Range | Performed | Pathologist | | | | | At | Signature | + + + + + + | Bordetella | Negative | Negative | [facility] | | | Pertussis | | | [facility] | | | PCR | | | [facility] | | | [...] + + | [facility] | [address] | [place] | [phone] | | [facility] | | [address] | | | - LABORATORY | | | | + + + + + documented in this encounter Visit Diagnoses + + | Diagnosis | + + | Persistent cough for 3 weeks or longer - Primary | + + | Acute non-recurrent maxillary sinusitis | + + documented in this encounter
--- OUTSIDE RECORDS SUMMARY | ~2019-07-06 | XMS | Encounter Summary ---
Demographics + + + | Address | [address] | | | [place] [address] | + + + | Home Phone | | + + + | Preferred Language | Unknown | + + + | Marital Status | | + + + | Roman Catholic Affiliation | 1041 | + + + | Race | Unknown | + + + | Ethnic Group | Unknown | + + + Author + + + | Author | [facility] | | | and [place] | + + + | Organization | [facility] | | | and [place] | + + + | Address | Unknown | + + + | Phone | Unavailable | + + + Support + + + + + | Name | Relationship | Address | Phone | + + + + + | Leona Brothers | ECON | [address] | | | | | [address], [place] | | | | | [address] | | + + + + + Care Team Providers + +------+ + | Care Railroad Inspector Name | Role | Phone | + +------+ + PCP | Unavailable | + +------+ + Encounter Details +--------+ + + + + | Date | Type | Department | Care Team | Description | +--------+ + + + + | 09/30/ | Hospital | [facility] | | | | 2002 | Encounter | [facility] | | | | | CENTER [address] | | | | | | [place] | | | | | | [address] | | | | | | [phone] | | | +--------+ + + + [...]
--- OUTSIDE RECORDS SUMMARY | ~2019-07-06 | XMS | Encounter Summary ---
Demographics + + + | Address | [address] | | | [place] [address] | + + + | Home Phone | | + + + | Preferred Language | Unknown | + + + | Marital Status | | + + + | Judaism Affiliation | 1041 | + + + | Race | Unknown | + + + | Ethnic Group | Unknown | + + + Author + + + | Author | [facility] | | | and [place] | + + + | Organization | [facility] | | | and [place] | + + + | Address | Unknown | + + + | Phone | Unavailable | + + + Support + + + + + | Name | Relationship | Address | Phone | + + + + + | Leona Brothers | ECON | [address] | | | | | [place], [place] | | | | | [address] | | + + + + + Care Team Providers + +------+ + | Care Distribution Coordinator Name | Role | Phone | + +------+ + PCP | Unavailable | + +------+ + Encounter Details +--------+ + + + + | Date | Type | Department | Care Team | Description | +--------+ + + + + | 06/18/ | Hospital | [facility] | | | | 1991 | Encounter | [facility] | | | | | | CENTER [address] | | | | | | [place] | | | | | | [address] | | | | | | [phone] | | | +--------+ + + + [...]
--- OUTSIDE RECORDS SUMMARY | ~2019-07-06 | XMS | Encounter Summary ---
Demographics + + + | Address | [address] | | | [place] [address] | + + + | Home Phone | | + + + | Preferred Language | Unknown | + + + | Marital Status | | + + + | Evangelical Affiliation | 1041 | + + + | Race | Unknown | + + + | Ethnic Group | Unknown | + + + Author + + + | Author | [facility] | | | and [place] | + + + | Organization | [facility] | | | and [place] | + + + | Address | Unknown | + + + | Phone | Unavailable | + + + Support + + + + + | Name | Relationship | Address | Phone | + + + + + | Leona Brothers | ECON | [address] | | | | | [facility] [place] | | | | | [address] | | + + + + + Care Team Providers + +------+ + | Care Chef Name | Role | Phone | + +------+ + | No, Physician | PCP | Unavailable | + +------+ + Reason for Visit +--------+ + | Reason | Comments | +--------+ + | Cough | sore throat RM 1 | +--------+ + Encounter Details +--------+---------+ + + + | Date | Type | Department | Care Team | Description | +--------+---------+ + + + | 05/23/ | Office | [facility] | Sesar Giraldo, | Sinusitis, | | 2016 | Visit | CARE [address] | [address] | unspecified | | | | [place] | [place] | chronicity, | | | | [address] | [address] | unspecified location | | | | [phone] | | (Primary Dx); | | | | | | Cough; Bronchitis | +--------+---------+ + + + Social History + +-------+ +--------+------+ | Tobacco Use | Types | Packs/Day | Years | Date | | | | | Used | | + +-------+ +--------+------+ | Never Smoker | | | | | + +-------+ +--------+------+ + + +---------+ + | Alcohol Use [...] + + + | Blood Pressure | 144/90 | 05/23/2016 3:50 PM | | | | | PDT | | + + + + + | Pulse | 74 | 05/23/2016 3:50 PM | | | | | PDT | | + + + + + | Temperature | 36.5 C (97.7 F) | 05/23/2016 3:50 PM | | | | | PDT | | + + + + + | Respiratory Rate | 18 | 05/23/2016 3:50 PM | | | | | PDT | | + + + + + | Oxygen Saturation | 97% | 05/23/2016 3:50 PM | | | | | PDT | | + + + + + | Inhaled Oxygen | - | - | | | Concentration | | | | + + + + + | Weight | 100.1 kg (220 lb | 05/23/2016 3:50 PM | | | | 11.2 oz) | PDT | | + + + + + | Height | 165.1 cm (5' 5") | 05/23/2016 3:50 PM | | | | | PDT | | + + + + + | Body Mass Index | 36.73 | 05/23/2016 3:50 PM | | | | | PDT | | + + + + + documented in this encounter Patient Instructions Patient Instructions Sesar Giraldo MD - 05/23/2016 4:05 PM PDTGet plenty of rest and w ater. Take the Zithromax as directed. Take the cough medicine as directed if needed.Don't do anything you need to be alert to do for 6 hours after taking a narcotic, such as driving, running machinery, swimming, etc. Recheck as needed. documented in this encounter Progress Notes Sesar Giraldo MD - 05/23/2016 4:08 PM PDTFormatting of this note might be different fr om the original. Subjective: Patient ID: Guillermo Brothers is a 46 y.o. male. HPI Patient's medications, allergies, past medical, surgical, social and family histories were obtained and reviewed as appropriate. This man came in with a family member saying that he's had a week or so of congestion and c ough producing phlegm. He also has pressure discomfort in his sinuses. He has not had a fe mindi. He has no stomach pain. He's had no nausea or vomiting or diarrhea. He has no other complaint. He is generally healthy and takes no regular meds. Review of Systems Constitutional: Negative. HENT: Positive for congestion and sinus pressure. Respiratory: Positive for cough. Cardiovascular: Negative. Gastrointestinal: Negative. Objective: Physical Exam Constitutional: He is oriented to person, place, and time. He appears well-developed and we ll-nourished. No distress. Patient is 46-year-old man. He was sitting on the exam table in the room. He ochoa s not appear to be in any distress. His BP was 144/90 and the rest of his vitals were compl etely normal. HENT: Head: Normocephalic. Right Ear: External ear normal. Left Ear: External ear normal. Mouth/Throat: Oropharynx is clear and moist. Moderate nasal congestion and mild tenderness to pressure over the maxillary sinuses. Eyes: Conjunctivae are normal. Pupils are equal, round, and reactive to light. Neck: Normal range of motion. Neck supple. Cardiovascular: Normal rate, regular rhythm and normal heart sounds. Pulmonary/Chest: Effort normal and breath sounds normal. Occasional congested cough Abdominal: Soft. There is no tenderness. Musculoskeletal: Normal gait and balance Lymphadenopathy: He has no cervical adenopathy. Neurological: He is alert and oriented to person, place, and time. Vitals reviewed. Assessment: 1. Sinusitis, unspecified chronicity, unspecified location 2. Cough HYDROcodone-homatropine (HYCODAN) 5-1.5 MG/5ML syrup 3. Bronchitis HYDROcodone-homatropine (HYCODAN) 5-1.5 MG/5ML syrup Plan: Please see the AVS for the plan unless outlined elsewhere. I will give him a prescription for Zithromax Z-DAQUAN. Also give him prescription for Hycodan syrup and I discussed med use and risks of this with him. He is to get rest and take pain water. Recheck as needed. He had no questions. documented in this e ncounter Plan of Treatment Not on filedocumented as of this encounter Visit Diagnoses + + | Diagnosis | + + | Sinusitis, unspecified chronicity, unspecified location - Primary | + + | Cough | + + | Bronchitis Bronchitis, not specified as acute or chronic | + + documented in this encounter
--- OUTSIDE RECORDS SUMMARY | ~2019-07-06 | XMS | Encounter Summary ---
Demographics + + + | Address | [address] | | | [place] [address] | + + + | Home Phone | | + + + | Preferred Language | Unknown | + + + | Marital Status | | + + + | Buddhist Affiliation | 1041 | + + + | Race | Unknown | + + + | Ethnic Group | Unknown | + + + Author + + + | Author | [facility] | | | and [place] | + + + | Organization | [facility] | | | and [place] | + + + | Address | Unknown | + + + | Phone | Unavailable | + + + Support + + + + + | Name | Relationship | Address | Phone | + + + + + | Leona Brothers | ECON | [address] | | | | | [facility] [place] [place] | | | | | [address] | | + + + + + Care Team Providers + +------+ + | Care Account Service Associate Name | Role | Phone | + +------+ + PCP | Unavailable | + +------+ + Encounter Details +--------+ + + + + | Date | Type | Department | Care Team | Description | +--------+ + + + + | 10/08/ | Hospital | [facility] | | | | 2002 - | Encounter | [facility] | | | | | | [address] | | | | 10/12/ | | [place] [address] | | | | 2002 | | [phone] | | | +--------+ + + + [...]
--- OUTSIDE RECORDS SUMMARY | ~2019-07-06 | XMS | Encounter Summary ---
Demographics + + + | Address | [address] | | | [place] [address] | + + + | Home Phone | | + + + | Preferred Language | Unknown | + + + | Marital Status | | + + + | Pentecostal Affiliation | 1041 | + + + | Race | Unknown | + + + | Ethnic Group | Unknown | + + + Author + + + | Author | [facility] | | | and [place] | + + + | Organization | [facility] | | [address] | | | | | [place], [place] | | | | | [address] | | + + + + + Care Team Providers + +------+ + | Care Stummel Selector Name | Role | Phone | + +------+ + PCP | Unavailable | + +------+ + Encounter Details +--------+ + + + + | Date | Type | Department | Care Team | Description | +--------+ + + + + | 11/06/ | Hospital | [facility] | | | | 1995 | Encounter | [facility] | | | | | | CENTER [address] | | | | | | [place] | | | | | | [address] | | | | | | [phone] | | | +--------+ + + + [...]
--- OUTSIDE RECORDS SUMMARY | ~2019-07-06 | XMS | Encounter Summary ---
Demographics + + + | Address | [address] | | | [place] [address] | + + + | Home Phone | | + + + | Preferred Language | Unknown | + + + | Marital Status | | + + + | Faith Affiliation | 1041 | + + + | Race | Unknown | + + + | Ethnic Group | Unknown | + + + Author + + + | Author | [facility] | | | and [place] | + + + | Organization | [facility] | | | and [place] | + + + | Address | Unknown | + + + | Phone | Unavailable | + + + Support + + + + + | Name | Relationship | Address | Phone | + + + + + | Leona Brothers | ECON | [address] | | | | | [place], [place] | | | | | [address] | | + + + + + Care Team Providers + +------+ + | Care Media Sales Representative Name | Role | Phone | + +------+ + PCP | Unavailable | + +------+ + Encounter Details +--------+ + + + + | Date | Type | Department | Care Team | Description | +--------+ + + + + | 06/18/ | Hospital | [facility] | | | | 1991 | Encounter | [facility] | | | | | | CENTER [address] | | | | | | [place] | | | | | | [address] | | | | | | [phone] | | | +--------+ + + + [...]
--- OUTSIDE RECORDS SUMMARY | ~2019-07-06 | XMS | Encounter Summary ---
Demographics + + + | Address | [address] | | | [place] [address] | + + + | Home Phone | | + + + | Preferred Language | Unknown | + + + | Marital Status | | + + + | Yazidism Affiliation | 1041 | + + + | Race | Unknown | + + + | Ethnic Group | Unknown | + + + Author + + + | Author | [facility] | | | and [place] | + + + | Organization | [facility] | | | and [place] [...] [place] | | | | | [address] | | + + + + + Care Team Providers + +------+ + | Care Project Development Engineer Name | Role | Phone | + +------+ + | Farhan Ferraro DO | PCP | | + +------+ + Reason for Visit + + + | Reason | Comments | + + + | Penile Discharge | Room 3. x [address] [place] has seem to make both of their | | | symptoms worse | + + + Encounter Details +--------+---------+ + + + | Date | Type | Department | Care Team | Description | +--------+---------+ + + + | 02/09/ | Office | [facility] | Quirino, | Mario (Primary | | 2019 | Visit | CARE [address] | Tashi Chowdhury MD | Dx) | | | | [place], [place] | [address] | | | | | [address] | [place], [place] | | | | | [phone] | [address] | | | | | | | [...] + + + | Blood Pressure | 142/86 | 02/09/2019 4:29 PM | | | | | PDT | | + + + + + | Pulse | 80 | 02/09/2019 4:29 PM | | | | | PDT | | + + + + + | Temperature | 37.2 C (99 F) | 02/09/2019 4:29 PM | | | | | PDT | | + + + + + | Respiratory Rate | 16 | 02/09/2019 4:29 PM | | | | | PDT | | + + + + + | Oxygen Saturation | 96% | 02/09/2019 4:29 PM | | | | | PDT | | + + + + + | Inhaled Oxygen | - | - | | | Concentration | | | | + + + + + | Weight | 94 kg (207 lb 3.7 | 02/09/2019 4:29 PM | | | | oz) | PDT | | + + + + + | Height | 165.1 cm (5' 5") | 02/09/2019 4:29 PM | | | | | PDT | | + + + + + | Body Mass Index | 34.49 | 02/09/2019 4:29 PM | | | | | PDT | | + + + + + documented in this encounter Patient Instructions Patient Instructions Tashi Win MD - 02/09/2019 4:30 PM PDT Balanitis [Balanitis] La Balanitis es agusto inflamacin en la giovanni del pene (glande) Puede ocurrir a partir de u na acumulacin de grmenes (bacterias o virus) bajo el prepucio. Con mayor frecuencia se t rata de agusto complicacin de la diabetes. Tambin puede ocurrir por obesidad o hbitos hig inicos pobres de los genitales. Si no se trata de inmediato, esto puede conducir a agusto condicin llamada Fimosis. sta es la incapacidad de tirar hacia atrs (retraer) desde el glande el prepucio. Los sntomas de la balanitis pueden incluir dolor del pene o sensibilidad al tacto, descar ga de lquido, imposibilidad de retraer el prepucio, dificultad para orinar e impotencia. Cuidado En [place]: 1. Si puede retraer el prepucio: ? Para los nios, retraiga el prepucio y lave con agua. Aplique Bacitracin crema o pomada al glande jac veces al da. ? Para los adultos, retraiga el prepucio y lave con agua. A menos que le hayan recetado otr o medicamento, aplique clotrimazol crema (Lotrimin, Mycelex) (disponible sin receta) al glan de jac veces al da. 2. Si usted es diabtico, hable con aranda mdico para lograr un buen control de aranda diabetes. 3. Si tiene sobrepeso, hable con aranda mdico para hacer un plan para adelgazar. Seguimiento con aranda mdico o de acuerdo a lo indicado por nuestro personal. Busque Prontamente Atencin Mdica si algo de lo siguiente ocurre: Incapacidad para regresar el prepucio retrado a la posicin original (Devol requiere a tencin inmediata!) Empeoramiento de carmen sntomas Bloqueo parcial o total del flujo de orina Date Last Reviewed: 10/07/20131999[address]41-7568 [employer]. [address] [place] [address], [place] [address]. Todos lo s derechos reservados. Esta informacin no pretende sustituir la atencin mdica profesio nal. Slo aranda mdico puede diagnosticar y tratar un problema de mali. documented in this encounter Progress Notes Tashi Win MD - 02/09/2019 4:30 PM PDTFormatting of this note might be di fferent from the original. Subjective: Chief Complaint: Penile Irritation (Room 3. x [address] [place] has seem to make both of t heir symptoms worse) Guillermo is a 49 y.o. male who comes in complaining of penile irritation. HPI this 49-year-old male presents with 2+ week history of penile irritation. He is marrie d and has regular intercourse with his who accompanies him today with her own symptoms. He also had intercourse with another partner about 1 month ago. He used a new sexual enha ncement cream before this all started a few times and it seemed to be irritating or other th an helpful over the last 2 weeks he is developed a white discharge that collect some of the foreskin is getting some splits in the surface of the skin near the glands every time he has intercourse gets much more itchy and painful. His took Keflex a few weeks ago for an abscess treatment. She denies having extramarital partners and has symptoms of a yeast infe ction today. He has not ever gotten checked for STDs that he can recall. He is currently u ninsured Patient's medications, allergies, past medical, surgical, social and family histories were reviewed and updated as appropriate. ROS See above Objective: BP 142/86 | Pulse 80 | Temp 37.2 C (99 F) (Temporal) | Resp 16 | Ht 1.651 m (5' 5") | Wt 94 kg (207 lb 3.7 oz) | SpO2 96% | BMI 34.49 kg/m Physical Exam NAD VSS. The genital exam shows uncircumcised penis with fiery red glands and distal shaft on retraction of the foreskin. There is a small amount of white clumpy discharge present t here are several superficial fissures in the skin typical for a yeast. He has no blisters o r other lesions and there is no penile discharge. No results found for this or any previous visit (from the past 24 hour(s)). Assessment and Plans: 1. Balanitis He clearly has a yeast infection and will be treated with Diflucan. He is at risk for havi ng contracted other STDs. He is reluctant to pursue treatment testing because of cost const raints. We will therefore handle him as a contact and test his and treat him if she co mes up positive This note was dictated using [employer] voice recognition software. Occasional wrong- word or s ound-alike substitutions may have occurred due to the inherent limitations of voice recognit ion software. Please read the chart carefully and recognize, using context, where these subs titutions have occurred. documented in this encounter Plan of Treatment Not on filedocumented as of this encounter Visit Diagnoses + + | Diagnosis | + + | Balanitis - Primary Balanoposthitis | + + documented in this encounter
--- OUTSIDE RECORDS SUMMARY | ~2019-07-06 | XMS | Encounter Summary ---
Demographics + + + | Address | [address] | | | [place] [address] | + + + | Home Phone | | + + + | Preferred Language | Unknown | + + + | Marital Status | | + + + | Taoism Affiliation | 1041 | + + + | Race | Unknown | + + + | Ethnic Group | Unknown | + + + Author + + + | Author | [facility] | | | and [place] | + + + | Organization | [facility] | | | and [place] | + + + | Address | Unknown | + + + | Phone | Unavailable | + + + Support + + + + + | Name | Relationship | Address | Phone | + + + + + | Leona Brothers | ECON | [address] | | | | | [place], [place] | | | | | [address] | | + + + + + Care Team Providers + +------+ + | Care Chemical Project Engineer Name | Role | Phone | + +------+ + PCP | Unavailable | + +------+ + Encounter Details +--------+ + + + + | Date | Type | Department | Care Team | Description | +--------+ + + + + | 10/05/ | Hospital | [facility] | | | | 2002 | Encounter | [facility] | | | | | | CENTER [address] | | | | | | [place] | | | | | | [address] | | | | | | [phone] | | | +--------+ + + + [...]
--- OUTSIDE RECORDS SUMMARY | ~2019-07-06 | XMS | Encounter Summary ---
Demographics + + + | Address | [address] | | | [place] [address] | + + + | Home Phone | | + + + | Preferred Language | Unknown | + + + | Marital Status | | + + + | Yazidism Affiliation | 1041 | + + + | Race | Unknown | + + + | Ethnic Group | Unknown | + + + Author + + + | Author | [facility] | | | and [place] | + + + | Organization | [facility] | | | and [place] | + + + | Address | Unknown | + + + | Phone | Unavailable | + + + Support + + + + + | Name | Relationship | Address | Phone | + + + + + | Leona Brothers | ECON | [address] | | | | | [address], [place] | | | | | [address] | | + + + + + Care Team Providers + +------+ + | Care Guest Relation Officer Name | Role | Phone | + +------+ + PCP | Unavailable | + +------+ + Encounter Details +--------+ + + + + | Date | Type | Department | Care Team | Description | +--------+ + + + + | 02/04/ | Hospital | [facility] | | | | 1992 | Encounter | [facility] EM[facility] | | | | | | CENTER [address] | | | | | | [place] | | | | | | [address] | | | | | | [phone] | | | +--------+ + + + [...]
--- OUTSIDE RECORDS SUMMARY | ~2019-07-06 | XMS | Encounter Summary ---
Demographics + + + | Address | [address] | | | [place] [address] | + + + | Home Phone [...] + | Author | [facility] | | | and [place] | + + + | Organization | [facility] | | | and [place] | + + + | Address | Unknown | + + + | Phone | Unavailable | + + + Support + + + + + | Name | Relationship | Address | Phone | + + + + + | Leona Brothers | ECON | [address] | | | | | [facility] [place] | | | | | [address] | | + + + + + Care Team Providers + +------+ + | Care Boatswains Mate Name | Role | Phone | + [...] [place] | chronicity, | | | | [address] | [address] | unspecified location | | | | [phone] | | (Primary Dx); | | | [...]
--- OUTSIDE RECORDS SUMMARY | ~2019-07-06 | XMS | Encounter Summary ---
Demographics + + + | Address | [address] | | | [place] [address] | + + + | Home Phone | | + + + | Preferred Language | Unknown | + + + | Marital Status | | + + + | Moravian Affiliation | 1041 | + + + | Race | Unknown | + + + | Ethnic Group | Unknown | + + + Author + + + | Author | [facility] | | | and [place] | + + + | Organization | [facility] | | | and [...] [place] | | | | | [address] | | + + + + + Care Team Providers + +------+ + | Care Operations Inspector Name | Role | Phone | [...] [place] | | | | | [address] | [address] | | | | | [phone] | | | +--------+ + + + [...]
--- OUTSIDE RECORDS SUMMARY | ~2019-07-06 | XMS | Encounter Summary ---
Demographics + + + | Address | [address] | | | [place] [address] | + + + | Home Phone | | + + + | Preferred Language | Unknown | + + + | Marital Status | | + + + | Orthodox Affiliation | 1041 | + + + | Race | Unknown | + + + | Ethnic Group | Unknown | + + + Author + + + | Author | [facility] | | | and [place] | + + + | Organization | [facility] | | | and [place] | + + + | Address | Unknown | + + + | Phone | Unavailable | + + + Support + + + + + | Name | Relationship | Address | Phone | + + + + + | Leona Brothers | ECON | [address] | | | | | [place] | | | | | [address] | | + + + + + Care Team Providers + +------+ + | Care Data Warehouse Developer Name | Role | Phone | + +------+ + | Farhan Ferraro PCP | | + +------+ + Reason for Visit + + + | Reason | Comments | + + + | Flu Like Symptoms | Room 4: Cough, fever-102, headache, nausea, scratchy throat, body | | | aches - no flu shot - took tylenol and ibuprofen @ 1200 | + + + Encounter Details +--------+---------+ + + + | Date | Type | Department | Care Team | Description | +--------+---------+ + + + | 07/03/ | Office | [facility] | Justin Baires, | Influenza B (Primary | | 2019 | Visit | CARE [address] | MD [address] | Dx) | | | | [place] | [place] | | | | | [address] | [address] | | | | | [phone] | | | +--------+---------+ + + + [...] in this encounter Patient Instructions Patient Instructions Justin Baires MD - 07/03/2019 2:15 PM PST Influenza [Influenza: Adult] La influenza, tambin conocida erika lagripe, es agusto enfermedad viral. Es diferente a lo que se conoce erika la gripe comn (el resfriado). Es muy contagiosa y se pasa a otros en el aire por medio de la tos, el estornudo o por el contacto directo (tocando la persona enferm a y despus tocndose a carmen propios ojos, nariz o boca). La enfermedad comienza de 1 a 3 thomas despus de ser expuesto al virus y dura de 1 a 2 heike anas. Por lo general no se usa los antibiticos a menos de que aparezca agusto complicacin ( infeccin en el odo o el seno nasal o pulmona). Los sntomas pueden ser leves o severos y pueden incluir mucho cansancio (el querer quedar se en la cama todo el da), escalofros, fiebre, dolor en los msculos, dolor con el movi miento de los ojos, dolor de giovanni y agusto tos seca. Cuidado En [place]: Evite exponerse al humo de los cigarrillos (el suyo o el de otros). Tylenol (acetaminofn) o ibuprofen (Advil) le ayudar a bajar la fiebre, aliviar el do real muscular y el dolor de giovanni. Los nios y adolescentes menores de los 18 aos con est a enfermedad no deben arnaldo aspirina cuando tengan la influenza porque puede causarle daos al hgado. Nusea y prdida del apetito son comunes. Se recomienda agusto dieta ligera. Evite deshid ratarse tomando de 6 a 8 vasos de lquido al da (agua, sodas, jugos, t, caldos, etc.). Los lquidos extras le ayudarn a que las secreciones de la nariz y pulmones salgan mas f cil. Medicinas para la chef under (el resfriado) que se puede comprar sin receta no ayudarn a cor tar la duracin de la enfermedad edi pueden ayudar con los siguientes sntomas: tos (Bryson MOSELEY), dolor de garganta (pastillas o aerosol de Chloraseptic), la congestin nasal (A ctifed, Sudafed o Chlortrimeton). Permanezca en frances casa por lo menos hasta 24 horas despus de que la fiebre haya desapar ecido, sin necesidad de usar medicamentos que reduzcan la fiebre (tales erika ibuprofeno [Adv il]). Seguimiento con frances mdico o segn las instrucciones de nuestro personal si no potter eric dentro de 1 semana. Nota: Si usted tiene 65 aos de edad o mas, o si tiene enfermedades asma crnica o agusto en fermedad pulmonar obstructiva crnica (EPOC), recomendamos agusto vacuna neumococo cada 5 ao s y todos los adultos deberan ponerse agusto vacuna contra la influenza (gripe)cada otoo. Pregntale a frances doctor acerca de esto. Busque Prontamente Atencin Mdica si algo de lo siguiente ocurre: Tos con bastante flema de color o con reinaldo Dolor de pecho, respiracin entrecortada (sensacin de ahogo), silbidos o dificultad a l respirar Dolor de giovanni uri, dolor en la kehinde, el marilu o los odos Aparece agusto nueva erupcin Fiebre de 100.4F (38C) o ms jayleen, tomada oralmente, que no mejora con los medicame ntos. Confusin, cambios de conducta (comportamiento) o convulsiones (ataques) Debilidad severa o mareos Date Last Reviewed: 07/22/201419992435-1975 [employer]. [address] [place] [address]. Todos lo s derechos reservados. Esta informacin no pretende sustituir la atencin mdica profesio nal. Slo frances mdico puede diagnosticar y tratar un problema de mali. Oseltamivir capsules Brand Name: Tamiflu What is this medicine? OSELTAMIVIR (os el COYLE i vir) is an antiviral medicine. It is used to prevent and to treat some kinds of influenza or the flu. It will not work for colds or other viral infections. How should I use this medicine? Take this medicine by mouth with a glass of water. Follow the directions on the prescriptio n label. Start this medicine at the first sign of flu symptoms. You can take it with or with out food. If it upsets your stomach, take it with food. Take your medicine at regular interv als. Do not take your medicine more often than directed. Take all of your medicine as direct ed even if you think you are better. Do not skip doses or stop your medicine early. Talk to your size roller operator regarding the use of this medicine in children. While this drug m ay be prescribed for children as young as 14 days for selected conditions, precautions do ap ply. What side effects may I notice from receiving this medicine? Side effects that you should report to your doctor or health customer care voice consultant as soon as p ossible: allergic reactions like skin rash, itching or hives, swelling of the face, lips, or tong ue anxiety, confusion, unusual behavior breathing problems hallucination, loss of contact with reality redness, blistering, peeling or loosening of the skin, including inside the mouth seizures Side effects that usually do not require medical attention (report to your doctor or health customer care voice consultant if they continue or are bothersome): diarrhea headache nausea, vomiting pain What may interact with this medicine? intranasal influenza vaccine What if I miss a dose? If you miss a dose, take it as soon as you remember. If it is almost time for your next dos e (within 2 hours), take only that dose. Do not take double or extra doses. Where should I keep my medicine? Keep out of the reach of children. Store at room temperature between 15 and 30 degrees C (59 and 86 degrees F). Throw away any unused medicine after the expiration date. What should I tell my health care provider before I take this medicine? They need to know if you have any of the following conditions: heart disease immune system problems kidney disease liver disease lung disease an unusual or allergic reaction to oseltamivir, other medicines, foods, dyes, or preserv atives or trying to get breast-feeding What should I watch for while using this medicine? Visit your doctor or health customer care voice consultant for regular check ups. Tell your doctor if yo ur symptoms do not start to get better or if they get worse. If you have the flu, you may be at an increased risk of developing seizures, confusion, or abnormal behavior. This occurs early in the illness, and more frequently in children and vickie ns. These events are not common, but may result in accidental injury to the patient. Familie s and caregivers of patients should watch for signs of unusual behavior and contact a doctor or health customer care voice consultant right away if the patient shows signs of unusual behavior. This medicine is not a substitute for the flu shot. Talk to your doctor each year about an annual flu shot. NOTE:This sheet is a summary. It may not cover all possible information. If you have questi ons about this medicine, talk to your doctor, pharmacist, or health care provider. Copyright 2019 Elsevier Codeine; Guaifenesin oral solution or syrup Brand Names: Antituss AC, Brontex, Cheracol with Codeine, Cheratussin AC, Codefen, Duragani din NR, Gani-Tuss NR, Guai Co, Guaiatussin AC, Guiatuss AC, Halotussin AC, Iophen C-NR, Mar- Cof CG, M-Clear WC, Mytussin AC, Ninjacof-XG, Robafen AC, Romilar AC, Tussi-Organidin NR, Vi rtussin AC Qu es sindy medicamento? La CODENA; GUAIFENESINA es un antitusivo y expectorante. Ayuda a detener o reducir la tos causada por resfros comunes o por irritantes inhalados. Sindy medicamento no sirve para tr atar agusto infeccin. Software Quality Engineer tamy utilizar sindy medicamento? [place] sindy medicamento por va oral. Siga las instrucciones de la etiqueta del medicamento. Puede tomarlo con o sin alimentos. Si el medicamento le produce malestar estomacal, tmelo con alimentos. Utilice agusto cuchara o un recipiente especialmente marcados para medir cada d osis. Si no tiene estos artculos, consulte a frances farmacutico. Las cucharas domsticas no son exactas. No llene en exceso. Enjuague el dispositivo de medicin con agua despus de cada uso. [place] frances medicamento a intervalos regulares. No lo tome con agusto frecuencia mayor a la indicada. Frances farmacutico le edmundo agusto Gua del medicamento especial (MedGuide, nombre en ingls) con cada receta y en cada ocasin que la vuelva a surtir. Asegrese de leer esta informaci n cada vez cuidadosamente. Hable con frances pediatra para informarse acerca del uso de sindy medicamento en nios. Sindy me dicamento no est aprobado para uso en nios. Qu efectos secundarios puedo tener al utilizar sindy medicamento? Efectos secundarios que debe informar a frances mdico o a frances profesional de la mali nicole pront o erika sea posible: reacciones alrgicas, erika erupcin cutnea, comezn/picazn o urticaria, e hinchazn de la kehinde, los labios o la lengua problemas respiratorios confusin convulsiones signos y sntomas de presin sangunea baja, tales erika mareos, sensacin de desmayo o aturdimie nto, cadas, cansancio o debilidad inusual dificultad para orinar o cambios en el volumen d e orina Efectos secundarios que generalmente no requieren atencin mdica (infrmelos a frances mdi co o a frances profesional de la mali si persisten o si son molestos): estreimiento boca seca nuseas, vmito cansancio Qu puede interactuar con sindy medicamento? No tome esta medicina con ninguno de los siguientes medicamentos: alcohol antihistamnicos para alergia, tos y resfro ciertos medicamentos para la ansieda d o para dormir ciertos medicamentos para la depresin, erika amitriptilina, fluoxetina, ser tralina ciertos medicamentos para convulsiones, tales erika carbamazepina, fenobarbital, feni katelynn, primidona anestsicos generales, tales erika halotano, isoflurano, metoxiflurano, pr opofol anestsicos locales, tales erika lidocana, pramoxina, tetracana IMAO, tales erika Carbex, Eldepryl, Marplan, Nardil y Parnate medicamentos para relajar los msculos antes de agusto ciruga otros medicamentos narcticos (opiceos) para el dolor o la tos fenotiazinas , tales erika clorpromazina, mesoridazina, proclorperazina, tioridazina Esta medicina tambin puede interactuar con los siguientes medicamentos: medicamentos antivirales para el VIH o SIDA atropina ciertos antibiticos, tales erika erit romicina y claritromicina ciertos medicamentos para problemas de vejiga, tales erika oxibutin erlin y tolterodina ciertos medicamentos para infecciones micticas, tales erika itraconazol y ketoconazol ciertos medicamentos para el ritmo cardiaco irregular, tales erika amiodarona, p ropafenona, quinidina ciertos medicamentos para el mal de Parkinson, tales erika benzatropina y trihexifenidilo ciertos medicamentos para problemas estomacales, tales erika diciclomina e hiosciamina ciertos medicamentos para el mareo por movimiento, erika escopolamina ipratropio rifampicina Qu sucede si me olvido de agusto dosis? Si olvida agusto dosis, tmela lo antes posible. Si es arleth la hora de la prxima dosis, sammi e slo may dosis. No tome dosis adicionales o dobles. Dnde tamy guardar mi medicina? Mantenga fuera del alcance de los nios. Existe la posibilidad de abusar de sindy medicamen to. Mantenga frances medicamento en un lugar seguro para protegerlo contra robos. No comparta est e medicamento con nadie. Es peligroso electric serviceman o regalar sindy medicamento, y est prohibido p or la giuseppe. Guarde a temperatura ambiente, entre 15 y 30 grados Celsius (59 y 86 grados Fahrenheit). Pr oteja viet. Sindy medicamento puede causar agusto sobredosis accidental y la muerte si lo t eneida otros adultos, nios o mascotas. Mezcle todo el medicamento sin usar con agusto sustancia erika piedras sanitarias para gatos o posos (residuos) de caf. Luego deseche el medicament o en un recipiente cerrado, erika agusto bolsa sellada o agusto shannan de caf con tapa. No utilice sindy medicamento despus de la fecha de vencimiento. Qu le tamy informar a mi profesional de la mali antes de arnaldo sindy medicamento? Necesitan saber si usted presenta alguno de los siguientes problemas o situaciones: enfermedad de [place] tumor cerebral enfermedad de la vescula biliar lesin de la giovanni enfermedad cardiaca antecedentes de abuso de alcohol o drogas antecedentes de ritmo cardiac o irregular si genaro alcohol con frecuencia enfermedad renal enfermedad heptica baja presi n sangunea enfermedad pulmonar o respiratoria, erika asma trastorno mental enfermedad panc retica convulsiones problemas estomacales o intestinales enfermedad tiroidea problemas al orinar agusto reaccin alrgica o inusual a la guaifenesina, a la codena, a otros medicamen tos, alimentos, colorantes o conservantes si est embarazada o buscando quedar embarazada s i est amamantando a un beb A qu tamy estar atento al usar sindy medicamento? Use exactamente segn las instrucciones de frances mdico o profesional de la mali. No tome u na dosis mayor que la recomendada. Es posible que desarrolle tolerancia a sindy medicamento s i lo shelly por mucho tiempo. Tolerancia significa que con el paso del tiempo sentir ollie a blanca de la tos. Informe a frances mdico o a frances profesional de la mali si carmen sntomas no mej bill o empeoran. Si potter estado tomando sindy medicamento por mucho tiempo, no deje de usarlo repentinamente po rque puede desarrollar agusto reaccin grave. Frances cuerpo se acostumbra al medicamento. [place] NO significa que usted es adicto. La adiccin es agusto conducta relacionada a la obtencin y el uso de agusto droga por razones que no son mdicas. Si frances mdico desea que deje de usar el m edicamento, la dosis se ir disminuyendo lentamente kay un tiempo para evitar cualquier efecto secundario. Existen distintos tipos de medicamentos narcticos (opiceos). Si shelly ms de un tipo al mismo tiempo o si est tomando otro medicamento que tambin causa somnolencia, es posible que tenga ms efectos secundarios. Entrguele a frances proveedor de atencin mdica agusto lis ta de todos los medicamentos que usa. Frances mdico le dir cunto medicamento arnaldo. No tome ms medicamento que lo indicado. Llame al servicio de emergencias para recibir ayuda si ti velasquez problemas para respirar o somnolencia inusual. Puede experimentar somnolencia o mareos. No conduzca, no utilice maquinaria ni seema nada qu e le exija permanecer en estado de alerta hasta que sepa spiral tube winder helper le afecta sindy medicamento. N o se siente ni se ponga de pie con rapidez, especialmente si es un paciente de edad avanzada . [place] reduce el riesgo de mareos o desmayos. El alcohol puede interferir con el efecto de e gerardo medicamento. Evite consumir bebidas alcohlicas. El medicamento puede causar estreimiento. Trate de evacuar al menos cada 2 o 3 thomas. Si no evacua los intestinos kay 3 thomas, comunquese con frances mdico o con frances profesional d e la mali. Se le podra secar la boca. Masticar chicle sin azcar, chupar caramelos duros y arnaldo ag ua en abundancia le ayudar a mantener la boca hmeda. Si el problema no desaparece o es s evero, consulte a frances mdico. [id number] [employer]. [address] [place] [id number]. Todos lo s derechos reservados. Esta informacin no pretende sustituir la atencin mdica profesio nal. Slo frances mdico puede diagnosticar y tratar un problema de mali. documented in this encounter Progress Notes Justin Baires MD - 07/03/2019 2:15 PM PSTFormatting of this note might be different fr om the original. Subjective: Patient ID: Guillermo Lewis is a 49 y.o. male.who presents today for Flu Like Sy mptoms (Room 4: Cough, fever-102, headache, nausea, scratchy throat, body aches - no flu taran t - took tylenol and ibuprofen @ 1200 ) . HPI The patient is a [place] only speaking male. The provided translation. He has been s ick since yesterday with cough, fever, headache, body aches, sore throat, nausea but no vomi ting. He has had no known exposures to influenza. Temperature is been as high as 102. Is any earaches or sinus pain. He has vomited but did have some loose stools yesterday. Patinathaniel nt has a history of diabetes. He does not have history of asthma or chronic lung diseases. He has been taking Tylenol and ibuprofen with only modest improvement. There is no problem list on file for this patient. No past surgical history on file. Current Outpatient Medications Medication Sig Dispense Refill ACETAMINOPHEN PO Take by mouth. cyclobenzaprine (FLEXERIL) 10 mg tablet glimepiride (AMARYL) 2 MG tablet TAKE 1 TABLET BY MOUTH TWICE DAILY 5 guaiFENesin-codeine (ROBITUSSIN AC) 100-10 mg/5 mL liquid Take 5-10 mLs by mouth every 4 hours as needed for Cough. 120 mL 0 ibuprofen (ADVIL,MOTRIN) 800 MG tablet metFORMIN (GLUCOPHAGE) 500 mg tablet Take 1 tablet by mouth 2 times daily. 180 tablet 0 oseltamivir (TAMIFLU) 75 mg capsule Take 1 capsule by mouth 2 times daily for 5 days. I ndications: Flu 10 capsule 0 No current facility-administered medications for this visit. He reports that he has never smoked. He has never used smokeless tobacco. Allergies No active allergies Intolerance No active intolerances/contraindications ROS Objective: BP 149/76 | Pulse 102 | Temp 37.2 C (98.9 F) (Temporal) | Resp 18 | Ht 1.676 m (5' 6") | Wt 97.6 kg (215 lb 2.7 oz) | SpO2 97% | BMI 34.73 kg/m Physical Exam Vision is alert and appropriate. He appears to be moderately ill and is not appearing to b e short of breath. The lungs are clear to auscultation with good air movement and no rales rhonchi or wheezes. Heart is regular rate and rhythm with no murmur. Neck is supple with n o adenopathy. Oral is with pink moist mucous membranes and moderate erythema the posterior pharynx with no exudates. Ears are with TMs normal bilaterally with no erythema fluid or bu lging. Abdomen is with active bowel sounds and is soft and nontender. Skin is with no pall or or rashes and otherwise normal for ethnicity. Influenza B rapid test is positive. No results found for this or any previous visit (from the past 24 hour(s)). Assessment/Plan: Guillermo was seen today for flu like symptoms. Diagnoses and all orders for this visit: Influenza B - Influenza A and B RNA, NAAT Other orders - oseltamivir (TAMIFLU) 75 mg capsule; Take 1 capsule by mouth 2 times daily for 5 days . Indications: Flu - guaiFENesin-codeine (ROBITUSSIN AC) 100-10 mg/5 mL liquid; Take 5-10 mLs by mouth kaia ry 4 hours as needed for Cough. Patient is given a prescription for guaifenesin with codeine for the cough as well as the g eneralized pains for which he states that the Tylenol and ibuprofen are not adequately contr olling. He should return for recheck if he is having persistent high fevers, shortness of b reath, or otherwise worsening. He is given a note to excuse him for work through July 08 . Return if symptoms worsen or fail to improve.Electronically signed by MD clara Carvajal 07/03/2019 5:00 PM PSTdocumented in this encounter Plan of [...] + + documented in this encounter Results Influenza A and B RNA, NAAT [...] + + + + + | [facility] | [address] | [place] | [phone] | | [facility] | | [address] | | | [facility] | | | | + + + + + documented in this encounter Visit Diagnoses + + | Diagnosis | + + | Influenza B - Primary Influenza with other respiratory manifestations | + + documented in this encounter
--- OUTSIDE RECORDS SUMMARY | ~2019-07-06 | XMS | Encounter Summary ---
Demographics + + + | Address | [address] | | | [place] [address] | + + + | Home Phone | | + + + | Preferred Language | Unknown | + + + | Marital Status | | + + + | Mosque Affiliation | 1041 | + + + | Race | Unknown | + + + | Ethnic Group | Unknown | + + + Author + + + | Author | [facility] | | | and [place] | + + + | Organization | [facility] | | | [...] [address] | | | | | [place], [place] | | | | | [address] | | + + + + + Care Team Providers + +------+ + | Care Printing Engineer Name | Role | Phone | + +------+ + PCP | Unavailable | + +------+ + Encounter Details +--------+ + + + + | Date | Type | Department | Care Team | Description | +--------+ + + + + | 12/13/ | [facility] | [facility] | Wilfredo Dunn | | | 2005 | Encounter | [facility] | [place] [address] | | | | | [place] [address] | [address] | | | | | [place] | [place] [address] | | | | | [address] | [phone] | | | | | [phone] | | | +--------+ + + + [...]
--- OUTSIDE RECORDS SUMMARY | ~2019-07-06 | XMS | Encounter Summary ---
Demographics + + + | Address | [address] | | | [place] [address] | + + + | Home Phone | | + + + | Preferred Language | Unknown | + + + | Marital Status | | + + + | Quaker Affiliation | 1041 | + + + | Race | Unknown | + + + | Ethnic Group | Unknown | + + + Author + + + | Author | [facility] | | | and [place] | + + + | Organization | [facility] | | | and [...] [place] | | | | | [address] | | + + + + + Care Team Providers + +------+ + | Care Consumer Banker Name | Role | Phone | + [...] (Primary Dx); Acute | | | | [address] | [address] | non-recurrent | | | | [phone] | | maxillary sinusitis | +--------+---------+ + [...] fluids and get plenty of rest. Use qken-usy-kihcrbh Tylenol, Aleve or Advil as needed for [...] d/or Cepastat throat spray as needed. Take tgyv-cjs-xqskoiz Mucinex or equivalent product as needed for [...] para tratar esta enfermedad. Cuidados En [place]: 1. Dina nik agua, t caliente y otros lquidos para mantenerse clay hidratado. Eso dilu ye la mucosidad y facilita el drenaje de los senos paranasales. 2. Aplique calor sobre las reas de la kehinde que le duelen. Use agusto toalla empapada en confederated salish. Tambin puede pararse en la ducha y dejar que le caiga el confederated salish sobre la kehinde. sta es agusto buena [...] atenci n mdica Convulsiones. Date Last Reviewed: 11/10/201419995833-6024 [employer]. [address] [place] [address], [place] [address]. Todos lo s derechos reservados. Esta informacin [...] y.o. male who comes in with his Citizen [place]-speaking , complaining of coug h for 1 month. He was initially seen at the [place] emergency room one month ago, had a [...] fluids and get plenty of rest. Use anum-vrp-rfoggta Tylenol, Aleve or Advil as needed for [...] d/or Cepastat throat spray as needed. Take gyhz-fva-hsxwiut Mucinex or equivalent product as needed for [...] [address] | [place] | [phone] | | [facility] | | [address] | | | - LABORATORY | | | | + + + + + documented in this encounter Visit Diagnoses + + | Diagnosis | + + | Persistent cough for 3 weeks or longer - Primary | + + | Acute non-recurrent maxillary sinusitis | + + documented in this encounter
--- OUTSIDE RECORDS SUMMARY | ~2019-07-06 | XMS | Encounter Summary ---
Demographics + + + | Address | [address] | | | [place] [address] | + + + | Home Phone | | + + + | Preferred Language | Unknown | + + + | Marital Status | | + + + | Alevism Affiliation | 1041 | + + + | Race | Unknown | + + + | Ethnic Group | Unknown | + + + Author + + + | Author | [facility] | | | and [place] | + + + | Organization | [facility] | | | and [place] | + + + | Address | Unknown | + + + | Phone | Unavailable | + + + Support + + + + + | Name | Relationship | Address | Phone | + + + + + | Loena Brothers | ECON | [address] | | | | | [place], [place] | | | | | [address] | | + + + + + Care Team Providers + +------+ + | Care Stock Sheets Cleaner Inspector Name | Role | Phone | + +------+ + PCP | Unavailable | + +------+ + Encounter Details +--------+ + + + + | Date | Type | Department | Care Team | Description | +--------+ + + + + | 02/04/ | Hospital | [facility] | | | | 1992 | Encounter | MED CTR EMERGENCY | | | | | | CENTER [address] | | | | | | [place] | | | | | | [address] | | | | | | [phone] | | | +--------+ + + + [...]
--- OUTSIDE RECORDS SUMMARY | ~2019-07-06 | XMS | Encounter Summary ---
Demographics + + + | Address | [address] | | | [place] [address] | + + + | Home Phone | | + + + | Preferred Language | Unknown | + + + | Marital Status | | + + + | Congregational Affiliation | 1041 | + + + | Race | Unknown | + + + | Ethnic Group | Unknown | + + + Author + + + | Author | [facility] | | | and [place] | + + + | Organization | [facility] | | | and [...] [place], [place] | | | | | [address] | | + + + + + Care Team Providers + +------+ + | Care Pearl Restorer Name | Role | Phone | + [...] | | | | | [place] [address] | [address] | | | | | [phone] | | | +--------+ + + + [...]
--- OUTSIDE RECORDS SUMMARY | ~2019-07-06 | XMS | Encounter Summary ---
Demographics + + + | Address | [address] | | | [place] [address] | + + + | Home Phone | | + + + | Preferred Language | Unknown | + + + | Marital Status | | + + + | Yarsani Affiliation | 1041 | + + + | Race | Unknown | + + + | Ethnic Group | Unknown | + + + Author + + + | Author | [facility] | | | and [place] | + + + | Organization | [facility] | | | and [place] | + + + | Address | Unknown | + + + | Phone | Unavailable | + + + Support + + + + + | Name | Relationship | Address | Phone | + + + + + | Leona Brothers | ECON | [address] | | | | | [facility] [facility] [place] | | | | | [address] | | + + + + + Care Team Providers + +------+ + | Care Tool Design Checker Name | Role | Phone | + [...] | | Services | type 2 | [facility] | [address] | | | | | diabetes | [place] | [place], | | | | | mellitus | [place], [place] | [place] | | | | | with | [address] | [address] | | | | | hyperglycemi | Phone: | Phone: | | | | | a ([facility]) | [phone] | [phone] | | | | | | Fax: | Fax: | | | | | | [phone] | [phone] | + + + + + + [...] + | 03/17/ | Office | [facility] | Simona Armas | Uncontrolled type 2 | | 2019 | Visit | CARE [address] | DO [address] | diabetes mellitus | | | | [place] | [address] [place] | with hyperglycemia | | | | [address] | [place] [address] | ([facility]) (Primary Dx) | | | | [phone] | [phone] | | | | | | | [...] any patient assistance available. Referral placed to childbirth educator. Subjective: HPI Patient presents with to [...] made to ensure accuracy. However, inadvertent computerized medical sales specialist errors may be pre sent. Nestor Duque [...] ST. | [address] | [place] | [phone] | | [facility] | | [address] | | | - LABORATORY | | [...] | | | FILTRATION | mL/min/1.73m2 | [facility] | | | SAO TOMEAN | RATE,ESTIMATED | | MEDICAL | | | | mL/min/1.83w6Khiv than | | PARK | | | [...] + + + | [facility] | [address] | [place] | [phone] | | [facility] | | [address] | | | TIN LABORATORY | | | | + + + + + documented in this encounter Visit Diagnoses + + | Diagnosis | + + | Uncontrolled type 2 diabetes mellitus with hyperglycemia (HCC) - Primary | + + documented in this encounter
--- OUTSIDE RECORDS SUMMARY | ~2019-07-06 | XMS | Clinical Summary ---
Demographics + + + | Address | [address] | | | [place] [address] | + + + | Home Phone | | + + + | Preferred Language | Unknown | + + + | Marital Status | | + + + | Rastafarian Affiliation | 1041 | + + + | Race | Unknown | + + + | Ethnic Group | Unknown | + + + Author + + + | Author | [facility] | | | and [place] | + + + | Organization | [facility] | | | and [place] [...] | [place] | | | | | [address] | | + + + + + Care Team Providers + +------+ + | Care Head Of Science Name | Role | Phone | + [...] + + + | JAYDAE | [address] | [place] | [phone] | | [facility] | | [address] | | | TIN LABORATORY | | | | + + + + + from Last 3 Months Advance Directives + + + + + | Type | Date Recorded | Patient | Explanation | | | | Sports Agent | | + + + + + | Power of | | | | | Retail Manager In Training | | | | + + + + + | Advance | | | | | Directive | | | | + + + + +
--- OUTSIDE RECORDS SUMMARY | ~2019-07-06 | XMS | Encounter Summary ---
Demographics + + + | Address | [address] | | | [place] [address] | + + + | Home Phone | | + + + | Preferred Language | Unknown | + + + | Marital Status | | + + + | Taoist Affiliation | 1041 | + + + | Race | Unknown | + + + | Ethnic Group | Unknown | + + + Author + + + | Author | [facility] | | | and [place] | + + + | Organization | [facility] | | | and [place] | + + + | Address | Unknown | + + + | Phone | Unavailable | + + + Support + + + + + | Name | Relationship | Address | Phone | + + + + + | Leona Brothers | ECON | [address] | | | | | [place], [place] | | | | | [address] | | + + + + + Care Team Providers + +------+ + | Care Social Staff Worker Name | Role | Phone | + +------+ + PCP | Unavailable | + +------+ + Encounter Details +--------+ + + + + | Date | Type | Department | Care Team | Description | +--------+ + + + + | 12/13/ | [facility] | [facility] | Wilfredo Dunn | | | 2005 | Encounter | MED CTR EMERGENCY | MD [address] | | | | | [place] [address] | [address] | | | | | [place] | [place] [address] | | | | | [address] | [phone] | | | | | [phone] | | | +--------+ + + + [...]
--- OUTSIDE RECORDS SUMMARY | ~2019-07-06 | XMS | Encounter Summary ---
Demographics + + + | Address | [address] | | | [place] [address] | + + + | Home Phone | | + + + | Preferred Language | Unknown | + + + | Marital Status | | + + + | Presybeterian Affiliation | 1041 | + + + | Race | Unknown | + + + | Ethnic Group | Unknown | + + + Author + + + | Author | [facility] | | | and [place] | + + + | Organization | [facility] [...] [address] | | | | | [facility], [place] | | | | | [address] | | + + + + + Care Team Providers + +------+ + | Care Linux Admin Name | Role | Phone | + +------+ + PCP | Unavailable | + +------+ + Encounter Details +--------+ + + + + | Date | Type | Department | Care Team | Description | +--------+ + + + + | 10/08/ | Hospital | [facility] | | | | 2002 - | Encounter | MED CTR MED ONC | | | | | | [address] | | | | 10/12/ | | [place] [address] | | | | 2002 | | [phone] | | | +--------+ + + + [...]
--- OUTSIDE RECORDS SUMMARY | ~2019-07-06 | XMS | Encounter Summary ---
Demographics + + + | Address | [address] | | | [place] [address] | + + + | Home Phone | | + + + | Preferred Language | Unknown | + + + | Marital Status | | + + + | Lutheran Affiliation | 1041 | + + + | Race | Unknown | + + + | Ethnic Group | Unknown | + + + Author + + + | Author | [facility] | | | and [place] | + + + | Organization | [facility] | | | and [place] [...] [place] | | | | | [address] | | + + + + + Care Team Providers + +------+ + | Care Enterprise Systems Architect Name | Role | Phone | + +------+ + | Farhan Ferraro DO | PCP | | + +------+ + Reason for Visit + + + | Reason | Comments | + + + | Penile Discharge | Room 3. x 2 wks [employer] has seem to make both of their | | | symptoms worse | + + + Encounter Details +--------+---------+ + + + | Date | Type | Department | Care Team | Description | +--------+---------+ + + + | 02/09/ | Office | [facility] | Quirino, | Mario (Primary | | 2019 | Visit | CARE [address] | Tashi Chowdhury MD | Dx) | | | | [place], [place] | [address] | | | | | [address] | [place], [place] | | | | | [phone] | [address] | | | | | [...] dificultad para orinar e impotencia. Cuidado En [place]: 1. Si puede retraer el prepucio: ? [...] el prepucio retrado a la posicin original (Jauca requiere a tencin inmediata!) Empeoramiento de carmen sntomas Bloqueo parcial o total del flujo de orina Date Last Reviewed: 10/07/201319996324-3627 [employer]. [address] [place] [address], [place] [address]. Todos lo s derechos reservados. Esta informacin no pretende sustituir la atencin mdica profesio nal. Slo aranda mdico puede diagnosticar y tratar un problema de mali. documented in this encounter Progress Notes Tashi Win MD - 02/09/2019 4:30 PM PDTFormatting of this note might be di fferent from the original. Subjective: Chief Complaint: Penile Irritation (Room 3. x 2 wks [employer] has seem to make both of t [...] up positive This note was dictated using [employer] voice recognition software. Occasional wrong- word or [...]
--- OUTSIDE RECORDS SUMMARY | ~2019-07-06 | XMS | Encounter Summary ---
Demographics + + + | Address | [address] | | | [place] [address] | + + + | Home Phone | | + + + | Preferred Language | Unknown | + + + | Marital Status | | + + + | Church Affiliation | 1041 | + + + | Race | Unknown | + + + | Ethnic Group | Unknown | + + + Author + + + | Author | [facility] | | | and [place] | + + + | Organization | [facility] | | | and [place] | + + + | Address | Unknown | + + + | Phone | Unavailable | + + + Support + + + + + | Name | Relationship | Address | Phone | + + + + + | Leona Brothers | ECON | [address] | | | | | [place], [place] | | | | | [address] | | + + + + + Care Team Providers + +------+ + | Care Building Trades Teacher Name | Role | Phone | + +------+ + PCP | Unavailable | + +------+ + Encounter Details +--------+ + + + + | Date | Type | Department | Care Team | Description | +--------+ + + + + | 09/30/ | Hospital | [facility] | | | | 2002 | Encounter | MED CTR EMERGENCY | | | | | | CENTER [address] | | | | | | [place] | | | | | | [address] | | | | | | [phone] | | | +--------+ + + + [...]
--- OUTSIDE RECORDS SUMMARY | ~2019-07-06 | XMS | Encounter Summary ---
Demographics + + + | Address | [address] | | | [place] [address] | + + + | Home Phone | | + + + | Preferred Language | Unknown | + + + | Marital Status | | + + + | Taoist Affiliation | 1041 | + + + | Race | Unknown | + + + | Ethnic Group | Unknown | + + + Author + + + | Author | [facility] | | | and [place] | + + + | Organization | [facility] | | | and [place] | + + + | Address | Unknown | + + + | Phone | Unavailable | + + + Support + + + + + | Name | Relationship | Address | Phone | + + + + + | Leoan Brothers | ECON | [address] | | | | | [place] | | | | | [address] | | + + + + + Care Team Providers + +------+ + | Care Capacity Planning Analyst Name | Role | Phone | + [...] [place] | | | | | [address] | [address] | | | | | [phone] | | | +--------+ + + + [...]
--- OUTSIDE RECORDS SUMMARY | ~2019-07-06 | XMS | Encounter Summary ---
Demographics + + + | Address | [address] | | | [place] [address] | + + + | Home Phone | | + + + | Preferred Language | Unknown | + + + | Marital Status | | + + + | Rastafari Affiliation | 1041 | + + + | Race | Unknown | + + + | Ethnic Group | Unknown | + + + Author + + + | Author | [facility] | | | and [place] | + + + | Organization | [facility] | | | and [place] | + + + | Address | Unknown | + + + | Phone | Unavailable | + + + Support + + + + + | Name | Relationship | Address | Phone | + + + + + | Leona Brothers | ECON | [address] | | | | | [facility] [place] | | | | | [address] | | + + + + + Care Team Providers + +------+ + | Care Video Recorder Mechanic Name | Role | Phone | [...] + + | 08/12/ | Office | [facility] | Maicol Aparicio | Viral URI with cough | | 2018 | Visit | CARE [address] | MD Carissa [address] | (Primary Dx) | | | | [place] | [place] | | | | | [address] | [address] | | | | | [phone] | | | +--------+---------+ + + + [...] ds and get plenty of rest. Use wydo-plm-gcdtwsx Tylenol, Aleve or Advil as needed for [...] d/or Cepastat throat spray as needed. Take tddh-iok-wlwdyoz Mucinex or equivalent product as needed for [...] recetan para esta enfermedad. Cuidados En [place]: 1) Si los sntomas son severos, descanse [...] del dolor de garganta. Date Last Reviewed: 04/12/201519991702-5661 [employer]. [address] [place] [address], [place] [address]. Todos lo s derechos reservados. Esta informacin [...] fluids and get plenty of rest. Use dukt-kdr-vfbbztr Tylenol, Aleve or Advil as needed for [...] d/or Cepastat throat spray as needed. Take prat-dns-izgzybv Mucinex or equivalent product as needed for [...]
--- OUTSIDE RECORDS SUMMARY | ~2019-07-06 | XMS | Encounter Summary ---
Demographics + + + | Address | [address] | | | [place] [address] | + + + | Home Phone | | + + + | Preferred Language | Unknown | + + + | Marital Status | | + + + | Gnosticism Affiliation | 1041 | + + + | Race | Unknown | + + + | Ethnic Group | Unknown | + + + Author + + + | Author | [facility] | | | and [place] | + + + | Organization | [facility] | | | and [place] | [...] [place] | | | | | [address] | | + + + + + Care Team Providers + +------+ + | Care Computer Architect Name | Role | Phone | [...] + + | 07/03/ | Office | [facility] | Justin Baires, | Influenza B (Primary | | 2019 | Visit | CARE [address] | MD [address] | Dx) | | | | [place] | [place] | | | | | [address] | [address] | | | | | [phone] | | | +--------+---------+ + + + [...] giovanni y agusto tos seca. Cuidado En [place]: Evite exponerse al humo de los cigarrillos [...] salgan mas f cil. Medicinas para la unemployment insurance director (el resfriado) que se puede comprar sin [...] Debilidad severa o mareos Date Last Reviewed: 07/22/201419994065-3770 [employer]. [address] [place] [address]. Todos lo s derechos reservados. Esta informacin [...] stop your medicine early. Talk to your merchandise pickup/receiving associate regarding the use of this medicine in children. While this drug m ay be prescribed for children as young as 14 days for selected conditions, precautions do ap ply. What side effects may I notice from receiving this medicine? Side effects that you should report to your doctor or health pediatric care coordinator as soon as p ossible: allergic reactions like skin rash, itching or hives, swelling of the face, lips, or tong ue anxiety, confusion, unusual behavior breathing problems hallucination, loss of contact with reality redness, blistering, peeling or loosening of the skin, including inside the mouth seizures Side effects that usually do not require medical attention (report to your doctor or health pediatric care coordinator if they continue or are bothersome): diarrhea [...] this medicine? Visit your doctor or health pediatric care coordinator for regular check ups. Tell your doctor [...] behavior and contact a doctor or health pediatric care coordinator right away if the patient shows signs [...] no sirve para tr atar agusto infeccin. Front Counter Clerk tamy utilizar sindy medicamento? [place] sindy medicamento por va oral. Siga las [...] medicin con agua despus de cada uso. [place] frances medicamento a intervalos regulares. No lo [...] profesional de la mali nicole pront o erkia sea posible: reacciones alrgicas, erika erupcin cutnea, [...] est e medicamento con nadie. Es peligroso traveling sales representative o regalar sindy medicamento, y est prohibido [...] los siguientes problemas o situaciones: enfermedad de [place] tumor cerebral enfermedad de la vescula biliar [...] grave. Frances cuerpo se acostumbra al medicamento. [place] NO significa que usted es adicto. La [...] en estado de alerta hasta que sepa customer equipment engineer le afecta sindy medicamento. N o se siente ni se ponga de pie con rapidez, especialmente si es un paciente de edad avanzada . [place] reduce el riesgo de mareos o desmayos. [...] es s evero, consulte a frances mdico. [id number] [employer]. [address] [place] [address]. Todos lo s derechos reservados. Esta informacin [...] ) . HPI The patient is a Georgian only speaking male. The provided translation. He [...] + + + | ALIREZA | [address] | [place] | [phone] | | [facility] | | [address] | | | [facility] | | | | + + + + + documented in this encounter Visit Diagnoses + + | Diagnosis | + + | Influenza B - Primary Influenza with other respiratory manifestations | + + documented in this encounter
--- OUTSIDE RECORDS SUMMARY | ~2019-07-06 | XMS | Encounter Summary ---
Demographics + + + | Address | [address] | | | [place] [address] | + + + | Home Phone | | + + + | Preferred Language | Unknown | + + + | Marital Status | | + + + | Taoist Affiliation | 1041 | + + + | Race | Unknown | + + + | Ethnic Group | Unknown | + + + Author + + + | Author | [facility] | | | and [place] | + + + | Organization | [facility] | | | and [place] | + + + | Address | Unknown | + + + | Phone | Unavailable | + + + Support + + + + + | Name | Relationship | Address | Phone | + + + + + | Leona Brothers | ECON | [address] | | | | | [place], [place] | | | | | [address] | | + + + + + Care Team Providers + +------+ + | Care Management Trainee Marketing Name | Role | Phone | + +------+ + PCP | Unavailable | + +------+ + Encounter Details +--------+ + + + + | Date | Type | Department | Care Team | Description | +--------+ + + + + | 02/05/ | Hospital | [facility] | | | | 1992 | Encounter | MED CTR EMERGENCY | | | | | | CENTER [address] | | | | | | [place] | | | | | | [address] | | | | | | [phone] | | | +--------+ + + + [...]
[~2019-07-06 15:08] MED LIST: ADVIL200 M1 PO; CEPACOL SORE T1 EAC5 MM; PROAIR HFA8.5 GM INH
[2019-07-06] MEDS ORDERED: METFORMIN HCL500 MG PO (15:22)
[2019-07-06] MEDS ORDERED: VIRTUSSIN AC L118 ML PO (15:23)
[2019-07-06] MEDS ORDERED: OSELTAMIVIR PHO75 MG PO (15:23)
[2019-07-06] MEDS ORDERED: TESSALON PERLE100 MG PO (16:14)
== END 2019-07-06 16:13 | disposition home or self-care (01) ==
LOC: ED 15:08
DX: J10.1 Influenza due to other identified influenza virus with other respiratory manifestations (principal); E11.9 Type 2 diabetes mellitus without complications; Z79.84 Long term (current) use of oral hypoglycemic drugs; Z79.899 Other long term (current) drug therapy
CPT/HCPCS: 99283